=== PATIENT | female | born 1965 | race Caucasian/White ===

== ENCOUNTER 2024-06-10 23:58 | Inpatient (IN) | payer OTHER, SELFPAY ==
[2024-06-10] VITALS (14 sets, daily range): BP systolic 102–130; BP diastolic 53–82
[2024-06-10 21:00] LABS: Glucose - Point of Care 157 mg/dl (70-99)
--- NOTE | 2024-06-10 21:11 | ED.GENMED ---
History of Present Illness
General
Chief Complaint: Unresponsive
Source: ambulance crew
Time Seen by Provider: 06/10/24 21:06
History of Present Illness
History of Present Illness:
59-year-old female brought to the emergency room by paramedics after being found unresponsive reportedly by her landlord. Paramedics report the patient was last seen normal around 2 PM. When paramedics arrived they found the patient unresponsive.
She was noted to be diaphoretic. Patient was breathing spontaneously and maintaining her oxygen saturation. She had an Accu-Chek in the 130s. A bottle of pills was found in the room. These have been identified as bupropion 100mg. The bottle was
not labeled so it is unknown as to how many were prescribed and when. Patient also has ibuprofen tablets and omeprazole tablets. Patient has not been here before so no further history is available.
2240: The cabin cleaning supervisor of the residence where the patient was found has come to the emergency room. She states that she knows the patient from when she was a child. She has not seen her in years but she showed up 6 weeks ago to her home. Patient lives
in [place] and evidently left her home and family unannounced. She was reported as a missing person. Police stopped her in [facility] but had no reason to detain the patient. The patient was last seen awake and alert sometime
yesterday. This afternoon when the home cabin cleaning supervisor came home she found the patient laying on her side seemingly watching a movie on her phone. However when the patient did not seem to move or respond after an extended period of time home underwent to
check on the patient and found her completely unresponsive. Pill bottles were discovered. The bottles with pills and then were brought to the emergency room and are listed in the medication list. There was a empty bottle. Nereida our pharmacy
tech searched the patient's medication history and was able to find a recent prescription for gabapentin 400 mg tablets. It seems that this was the empty bottle. I asked the home monitor if the patient indicated any suicidal ideations to her and
apparently she did not. Pulmonary did not observe any suicide note but she did not really look for 1. She will searched the home and let us know if she finds anything. Homeowner has communicated with the patient's family through Facebook. They
have apparently stated that the patient needs psychiatric care but she is unable to provide any details. There are no contact information for the patient's family in [place].
Phy Exam
Physical Exam
Physical Exam:
General: Not responsive to verbal stimulus. Patient does moan and localize to sternal rub
Vitals: Rectal temp 97, mildly tachycardic, normotensive with normal oxygen saturation
Head: Atraumatic
Eyes: Pupils equal @ 5 mm and reactive
Throat: Airway intact, no exudates
Neck: Trachea midline
Lungs: Clear and equal b/l
Heart: Regular rate, no murmurs
Abd: Soft, Nontender, No pulsatile mass
Neuro: Patient does not follow commands
Skin: Cool to touch, moist, no rash
Extremities: pulses equal b/l, no edema. Area of erythema noted on the right hip as well as the inner left knee
Course
Orders/Labs/Results
Orders:
Orders
06/10/24 21:05
EKG [Electrocardiogram (*1)] Stat
Reason for Study: Fatigue / Weakness
06/10/24 21:06
CT Head W/o Iv Contrast Urgent
Comment:
Reason For Exam: unresponsive
Cardiac Monitoring- Treatment ONCE
EKG- Treatment ONCE
0.9% Sodium Chloride 1000 ml [Nss] 1,000 ml IV BOLUS
06/10/24 21:15
Complete Blood Count/With Diff Urgent
Venous Blood Gas Urgent
%Oxygen/Room Air: 28
06/10/24 21:33
Acetaminophen Urgent
Alcohol Urgent
Basic Metabolic Panel Urgent
Creatine Phosphokinase Urgent
Fentanyl, Urine Urgent
Salicylate Urgent
Urinalysis Reflex To Culture Urgent
Date Specimen was Collected: 06/10/24
Time Specimen was Collected: 21:28
Urine Drug Abuse Screen Urgent
Date Specimen was Collected: 06/10/24
Time Specimen was Collected: 21:28
Urine Microscopic Reflex Cult Urgent
06/10/24 21:52
FentaNYL 1,000 MCG/100 ML [Sublimaze] 1,000 mcg in 100 ml IV NOW
Indication:: Deep Sedation
Begin Infusion:: Now
Goal:: RASS </= -3, BIS 40-60, ventilator synchrony
Maximum dose in mcg/hr:: 300
Continue currently infusing dose and titrate:: Yes
Titration Instructions:: Titrate Q30 min until ventilator synchrony, RASS or BIS goal is met.
Titration Instructions:: If RASS >/= -2 or BIS > 60 or ventilator dyssynchrony:
Titration Instructions:: administer bolus dose and increase infusion by 25 mcg/hr.
Titration Instructions:: Administer analgesia bolus dose(s) & titrate analgesia prior to
Titration Instructions:: adjusting sedation.
Over-sedation Instructions:: if BIS < 40 and pt is synchronous with ventilator, decrease infusion by
Over-sedation Instructions:: 25 mcg/hr every 2 hours until BIS = 40-60.
Over-sedation Instructions:: Do not wean infusion to off if patient is receiving a continuous NMBA or
Over-sedation Instructions:: has received a bolus dose of NMBA within the past 3 hours.
Notify provider:: immediately if pt exhibits signs/symptoms of chest wall rigidity,
Notify provider:: hemodynamic instability, or agitation/pain despite maximum dosing.
Additional Instructions:: Patient MUST be mechanically ventilated.
Fentanyl Citrate/Pf [Sublimaze] 50 mcg IV [id number] PRN
Fentanyl Citrate/Pf [Sublimaze] 80 mcg IV NOW STA
CR Chest Portable - 1 View Urgent
Comment:
Reason For Exam: tube placement
Reason Study Needs to be Portable: Patient Unstable
06/10/24 22:32
Add On- LAB Urgent
Tests Added?: cpk
06/10/24 23:17
Admit/Transfer Patient As Directed
Co-Sign Provider:
Level of Care: Inpatient admission
Assign to:: ICU
Physician / Group: hospitalist
Diagnosis: Unresponsive
Reason for Hospitalization: Unresponsive
Expected length of stay greater than two midnights?: Yes
ELOS- Estimated Length of Stay in days: 2
I certify the patient meets the requirements for IP care: Yes
PRN Pain Medication Management As Directed
May give lesser potent ordered pain med per pt: Yes
preference::
Protocol:: Medication orders for pain may be administered in a
manner that supports deferring to patient preference
when the pt is:
- Requesting an ordered lesser potent pain medication.
Least to most potent pain medications are defined
as: acetaminophen < NSAID < tramadol < opioids
(morphine, oxycodone, hydromorphone).
- Requesting a lesser dose of the same medication IF
ORDERED.
- Requesting a less intrusive route of administration
if both routes are prescribed by the provider (PO <
IV).
06/10/24 23:18
Code Status As Directed
Resuscitation Status: Full Code
06/10/24 23:45
Hep Liver [Hbvir-[id number]] Urgent
06/11/24 00:17
Acetaminophen [Tylenol/Feverall] 650 mg RECTAL Q4HPRN PRN
Bisacodyl [Dulcolax] 10 mg RECTAL [id number] PRN
Dextrose 5%/0.9%Sodchl 1000 ml [D5/0.9% Sodium Chloride] 1,000 ml IV 150 mls/hr
Ipratropium/Albuterol Sulfate [Duoneb] 3 ml INH R Q4HPRN PRN
Ondansetron Injectable [Zofran] 4 mg IV Q6HPRN PRN
Polyethylene Glycol Powder [Miralax] 17 grams PO DAILYPRN PRN
06/11/24 00:17
Consult Notification Routine
Specialty to Notify: Assistant Distribution Manager
Assistant Distribution Manager Consult Routine
Consulting Provider: Evan Squires
Was physician already notified: No
Reason for consult: found obtunded
Activity As Directed
Activity Level: With Assistance
Vital Signs As Directed
Frequency: Per unit guidelines
DX Deep Vein Thrombosis Video Routine
06/11/24 01:18
Venous Blood Gas Routine
%Oxygen/Room Air: 50
06/11/24 06:00
Basic Metabolic Panel IN AM
Complete Blood Count/No Diff IN AM
Creatine Phosphokinase IN AM
ESR [Erythrocyte Sed Rate] IN AM
Folate IN AM
TSH IN AM
Vitamin B12 IN AM
06/11/24 08:00
Pantoprazole [Protonix IV] 40 mg IV DAILY
06/11/24 Dinner
NPO
Allow oral meds: No
Allow clear liquids: No
06/11/24 18:00
Enoxaparin Sodium [Lovenox] 40 mg SC QPM
Abnormal Lab Results
06/10/24 06/10/24 06/10/24
20:59 21:15 21:33
RBC 5.77 H 10^6/uL
(4.20-5.40)
Hgb 17.4 H g/dL
(12.0-16.0)
Hct 52.1 H %
(37.0-47.0)
MPV 11.1 H fL
(7.4-10.4)
Absolute Neuts (auto) 7.8 H 10^3/uL
(1.4-6.5)
Absolute Monos (auto) 0.7 H 10^3/uL
(0.1-0.6)
Neutrophils % 75.9 H %
(42.2-75.2)
Lymphocytes % 16.4 L %
(20.5-51.1)
VBG pCO2 49 H mmHg
(35-48)
VBG pO2 53 H mmHg
(30-50)
VBG HCO3 27.7 H mmol/L
(22-27)
Glucose 188 H mg/dl
(70-99)
AST
Creatine Kinase 1123 H U/L
(30-135)
Urine Ketones 1+ A
(Negative)
Ur Occult Blood Reflex 4+ A
(Negative)
Leukocyte Esterase Rfl Trace A
(Negative)
Urine RBC 21-25 A /HPF
(0-2)
Salicylates < 1.0 L mg/dl
(2.0-20.0)
Acetaminophen < 10 L ug/ml
(10-30)
U Benzodiazepines Scrn Positive H
(Negative)
POC Glucose 157 H mg/dl
(70-99)
06/10/24
23:45
RBC
Hgb
Hct
MPV
Absolute Neuts (auto)
Absolute Monos (auto)
Neutrophils %
Lymphocytes %
VBG pCO2
VBG pO2
VBG HCO3
Glucose
AST 52 H U/L
(14-36)
Creatine Kinase
Urine Ketones
Ur Occult Blood Reflex
Leukocyte Esterase Rfl
Urine RBC
Salicylates
Acetaminophen
U Benzodiazepines Scrn
POC Glucose
06/10/24 21:15
06/10/24 21:33
Vital Signs
Initial and Last Documented VS:
Initial Vital Signs
Temp Pulse Resp Pulse Ox
97.9 F 107 10 96
06/10/24 20:56 06/10/24 20:56 06/10/24 20:56 06/10/24 20:56
Last Documented Vital Signs
Temp Pulse Resp BP Pulse Ox
97.9 F 92 22 103/61 100
06/10/24 20:56 06/11/24 00:04 06/11/24 00:04 06/10/24 23:45 06/11/24 00:04
Procedures
Intubations
Procedure completed by: Myself
Method of Intubation: glidescope
Tube size (cm): 8.0
Placement confirmed by: auscutation, CXR, capnography and direct visualization
Breath sounds after intubation: equal
Intubation complications: no complications
MDM/Problems Addressed
Differential Diagnosis Includes:
Intracranial hemorrhage, ischemic CVA, seizure with postictal state, polypharmacy overdose, bupropion overdose, gabapentin overdose, alcohol intoxication, benzodiazepine overdose
MDM/Problems Addressed:
Patient presents to the emergency room obtunded. She did have a bit of a reaction to a sternal rub when she first arrived but on repeat evaluation she was essentially unresponsive to any painful stimulus. Though she was maintaining her oxygen
saturation she developed sonorous respirations. The decision was made to intubate her for airway protection. Intubation proceeded without any issues. Head CT shows no acute abnormalities. Patient's labs do not indicate a reason for her obtunded
state. The overall presentation seems most consistent with a ingestion of some sort. Patient will require supportive care. Acetaminophen and salicylate levels are 0. Alcohol level is 0.
Spoke with Pt's daughter, Mendy, . Very concerned and would like to be kept up do date. No hx of suicide attempts. No significant psychiatric hx.
*Radiology
Radiology exam reviewed: preliminary read by ED provider (Personal review of the patient's chest x-ray shows ET tube in good position, no pneumothorax, no infiltrate) and radiology read reviewed (Head CT report noted, no acute disease)
*Pulse Oximetry
Patient hypoxic: no
*EKG
Interpreted by ED Provider?: Yes
Interpretation: normal
Heart Rate: 98
Rate: normal
Rhythm: sinus
[place]: normal axis
Interval: normal interval
QRS Pattern: normal QRS
Ischemia: no ischemia
*Production Associate Interpretation
Rate: normal
Interpretation: normal
Rhythm: sinus
*Critical Care Note
Total Time (30-74mins, 75-104mins- exclusive of procedures): 50 min
comment:
Critical care statement: A total of 50 minutes of critical care time was provided for this patient. This includes management of unstable vital signs, evaluation of the patient at bedside, reviewing the patient's pertinent medical records, discussion
with consultants, review of old EKGs and review of pertinent medical records. This time with separate from time utilized to perform the aforementioned documented procedures
ED Attending Note
-
Portions of this chart may have been created with voice recognition software.� Occasional wrong word or��sound alike� substitutions may have occurred due to the inherent limitations of voice recognition software.
Discharge Plan
Departure
Patient Disposition: Admit
Date of Disposition: 06/10/24
Time of Disposition: 22:48
Admit to: ICU
Presentation/result/management discussed w/ accepting MD/DO: Hospitalist
Condition: Serious
Discharge Problem:
Acute alteration in mental status, Respiratory failure
Interventions
Interventions:
*Risk Screen - Suicide Last Done: 06/10/24 21:07
*General Assessment Last Done: 06/10/24 21:06
*Neglect/Abuse Screening Last Done: 06/10/24 21:07
ED- Fall Risk Assessment Last Done: 06/11/24 00:08
*ED COVID-19 Vaccine History Last Done: 06/10/24 21:07
*Nursing Disposition Last Done: 06/11/24 00:08
ED- Neurological Assessment Last Done: 06/10/24 21:08
Discharge Date and Time
Discharge Date/Time: 06/11/24 00:08
[2024-06-10 21:21] LABS: Venous Blood Gas B.E. 1.2 mmol/L (-4 to +4); Venous Blood Gas HCO3 27.7 mmol/L (22-27); Venous Blood Gas O2 Sat % 89.6 %; Venous Blood Gas pCO2 49 mmHg (35-48); Venous Blood Gas pH 7.36 (7.32-7.43); Venous Blood Gas pO2 53 mmHg (30-50)
[2024-06-10 21:23] LABS: % Basophils 0.5 % (0-2); % Eosinophils 0.2 % (0-6); % Immature Granulocytes 0.2 % (0-0.5); % Lymphocytes 16.4 % (20.5-51.1); % Monocytes 6.8 % (1.7-9.3); % Neutrophils 75.9 % (42.2-75.2); Absolute Basophils 0.1 10^3/uL (0-0.2); Absolute Lymphocytes 1.7 10^3/uL (1.2-3.4); Absolute Monocytes 0.7 10^3/uL (0.1-0.6); Absolute Neutrophils 7.8 10^3/uL (1.4-6.5); Hematocrit 52.1 % (37.0-47.0); Hemoglobin 17.4 g/dL (12.0-16.0); Mean Corp Hgb Conc. 33.4 g/dL (33.0-37.0); Mean Corpuscular Hgb 30.2 pg (27.0-31.0); Mean Corpuscular Volume 90.3 fL (81.0-99.0); Mean Platelet Volume 11.1 fL (7.4-10.4); Nucleated Red Blood Cells % 0 %; Platelet Count 232 10^3/uL (130-400); Red Blood Cell Count 5.77 10^6/uL (4.20-5.40); Red Cell Dist. Width 11.9 % (11.5-14.5); White Blood Cell Count 10.3 10^3/uL (4.8-10.8)
[2024-06-10] MEDS: NSS 1000 IV (21:47)
[2024-06-10 21:48] LABS: Urine Albumin Trace (Neg - Trace); Urine Bilirubin Negative (Negative); Urine Character Clear (Clear); Urine Color Yellow; Urine Glucose Negative (Negative); Urine Ketone 1+ (Negative); Urine Leukocyte Trace (Negative); Urine Nitrite Negative (Negative); Urine Occult Blood 4+ (Negative); Urine Specific Gravity 1.015 (<1.030); Urine Urobilinogen Negative (Neg - 1+)
--- NOTE | 2024-06-10 21:51 | PHANOTE ---
Med Rec Note:
Pt unable to be interviewed. Medications found in pt's belonging bag, identified Bupropion 100mg, no label on pill bottle and no mention in Dr Alaniz, unable to find out frequency of prescription. Ibuprofen 200mg, Omeprazole/Sodium Bicarb 20-1100mg,
and Vape Pen in belongings as well.
Gabapentin 400mg taper prescription found in Dr Alaniz.
Home med list left unconfirmed.
[2024-06-10 21:58] LABS: Amphetamines Negative (Negative); Barbiturates Negative (Negative); Benzodiazepines Positive (Negative); Buprenorphine Negative (Negative); Cocaine Negative (Negative); Marijuana Negative (Negative); Methadone Negative (Negative); Methamphetamines Negative (Negative); Opiates Negative (Negative); Phencyclidine Negative (Negative); Tricyclic Antidepressants Negative (Negative)
[2024-06-10 22:00] LABS: Urine Red Blood Cell 21-25 /HPF (0-2); Urine White Cell 0-2 /HPF (0-5)
[2024-06-10 22:11] LABS: Acetaminophen < 10 ug/ml (10-30); Alcohol None Detected; Blood Urea Nitrogen 11 mg/dl (7-17); Calcium 9.9 mg/dl (8.4-10.2); Carbon Dioxide 24 mmol/L (22-30); Chloride 104 mmol/L (98-107); Glucose 188 mg/dl (70-99); Salicylate < 1.0 mg/dl (2.0-20.0); Sodium 143 mmol/L (135-145); eGFR > 60.00
[2024-06-10] MEDS: SUBLIMAZE 80 MCG IV (22:16)
[2024-06-10 22:17] LABS: Fentanyl, Urine Negative (Negative)
[2024-06-10] MEDS: SUBLIMAZE 100 IV (22:22)
[2024-06-10 22:44] LABS: Creatine Phosphokinase 1123 U/L (30-135)
--- NOTE | 2024-06-10 23:07 | HPS.HSE ---
Family Physician
-
Family Physician:
Chief Complaint
-
Unresponsive
History of Present Illness
This is a 59-year-old female who was found unresponsive at an acquaintance's house. History cannot be obtained from patient no family available to provide corroborative information. My history was relayed in part by ED physician and hospital staff.
According to the history obtained from the acquaintance, the patient was last seen normal denied previous evening. Maintenance went to work today and when she came back at around 6 PM found the patient laying on the chair not moving. Initially
thought she was sleeping. However the patient was motionless but appeared to be breathing. She was not arousable and EMS was called. Found at the patient's bedside was a bag which contained Wellbutrin, ibuprofen and omeprazole. She has a
prescription for gabapentin 400 mg tablets 3 times daily with instructions to increase in his twice fashion. It is unclear whether she had any actual ingestions.
The acquaintance reported that the patient's daughter lives in another state and the patient was originally from another state. She arrived in [place] about 6 weeks ago. She was reported as a missing person from the outside state. "Emma"Robert reports that the patient had psychiatric issues. No prior history of suicidal ideation. No prior history of suicidal attempt. Over the 6 weeks that she has been known by the acquaintance she has not expressed any suicidal ideation. She
was initially picked up by police as a missing person but was found to be not a danger to herself or anyone else and was released to the acquaintance where she has been staying since. No other history is available.
On arrival in the emergency department the patient was obtunded and unresponsive. She was intubated immediately. Initial gas was actually unremarkable with mild respiratory acidosis. She was afebrile blood pressure was stable at 120/60 and she
was satting 95% on room air. CBC was unremarkable. Electrolytes and BUN/creatinine also normal. UA was unremarkable. CT of the head shows no nothing acute, carry 1 malformation noted. Chest x-ray status post intubation showed appropriate
placement of ET tube with some atelectasis. The drug screen was negative for serum toxicology. Urine was positive for benzodiazepine and THC.
Medical History
Past Medical History
Past Medical History: Reports Other (Unable to obtain due to obtundation)
Past Surgical History: Reports Other
Additional Past Surgical History:
Unable to obtain due to obtundation
Social History
Unable to obtain full social history at this time due to: Patient Non-verbal
Family History
Family History: Unable to Obtain (Obtunded and intubated)
Allergies / Home Medications
Allergies reflects when Allergies were last updated in [facility].
Home Medications with original date entered in [facility]
Allergy/Medication List:
Allergies
Allergy/AdvReac Type Severity Reaction Status Date / Time
No Allergy Information Allergy Unverified 06/10/24 21:31
Available
Home Medications
bupropion HCl 100 mg tablet 100 mg PO 06/10/24
gabapentin 400 mg capsule 400 mg PO USEASDIRECTD 06/10/24
ibuprofen 200 mg tablet 200 - 400 mg PO Q4HPRN PRN mild pain 06/10/24
omeprazole-sodium bicarbonate 1 tab PO DAILY 06/10/24
Review of Systems
-
Unable to obtain full review of systems at this time due to: Patient Intubation
Physical Exam
Vital Signs
Vital Signs
Temp Pulse Resp BP Pulse Ox
97.9 F 91 14 113/59 100
06/10/24 20:56 06/10/24 22:45 06/10/24 22:45 06/10/24 22:45 06/10/24 22:45
Physical Exam
General: Intubated
HEENT: NormoCephalic, Anicteric, Moist mucous membranes, Atraumatic and No Ptosis
Respiratory: Clear
Cardiac: S1/S2 and Regular Rhythm
Breast: Deferred by me
GI: Soft, Non Tender, Non Distended and Normal Bowel Sounds
Rectal: Deferred by Provider
Genito-urinary: Clear Urine
Musculoskeletal: No Clubbing, No Cyanosis and No Edema
Skin: Warm
Neuro: Sedated (intubated)
Hematologic/Lymphatic: No Lymphadenopathy
Laboratory Results
-
06/10/24 21:15
06/10/24 21:33
Laboratory Results
Total Bilirubin Cancelled 06/10/24 21:33
AST Cancelled 06/10/24 21:33
ALT Cancelled 06/10/24 21:33
Alkaline Phosphatase Cancelled 06/10/24 21:33
Data Reviewed
-
Diagnostic Radiology: Image Personally Visualized and interpreted and Report Reviewed by me
CT Scan: Report Reviewed by me
Medical Tests (Nuc Med, Echo, EKG etc): Image Personally Visualized and interpreted
Lab Data: Labs Reviewed by me
Old Records: Reviewed
Impression/Plan
-
IMPRESSION:
59 F found down by acquantance with no known history except for a history of psychiatric problems and seemingly leaving her home out of state and found in [place] 6 weeks ago. Possible ingestion but negative drug screen and urine screen. No seizure hx.
CT head is unremarkable. CBC, BUN/Cr and electrolytes unremarkable. CK elevated. Intubated for airway protection and obtundation. No infiltrates.
PLAN:
1. Obtundation - Overdose suspected vs seizure. + urine benzos and thc. No h/o si.
- admit to icu
- intubated, 14 450 50 5, titrate to minimum setting as tolerated
- IV D5 NS for now at 150 ml/hr, trend cpk, normal renal function at this time
- gi ppx with PPI IV
- holding welbutrin and gabapentin
- wean sedation as tolerated
- tsh, b12, folate, esr in am
- if not awake in am, EEG and neuro consult in am
- psych consult when able
- f/u with daughter in am
- 1:1 when awake
-snout puller consulted
DVT PPX - lovenox sq
Code status - full code
[2024-06-11] VITALS (29 sets, daily range): BP systolic 107–155; BP diastolic 58–104; BMI 26.9
[2024-06-11 00:15] LABS: ALT (SGPT) 27 U/L (0-35); AST (SGOT) 52 U/L (14-36); Albumin 4.2 g/dl (3.5-5.0); Alkaline Phosphatase 90 U/L (38-126); Direct Bilirubin 0.2 mg/dl (0.0-0.4); Total Bilirubin 1.1 mg/dl (0.2-1.3); Total Protein 7.3 g/dl (6.3-8.2)
[2024-06-11 01:10] LABS: Venous Blood Gas B.E. -0.8 mmol/L (-4 to +4); Venous Blood Gas HCO3 26.7 mmol/L (22-27); Venous Blood Gas O2 Sat % 90.2 %; Venous Blood Gas pCO2 53 mmHg (35-48); Venous Blood Gas pH 7.31 (7.32-7.43); Venous Blood Gas pO2 57 mmHg (30-50)
[2024-06-11 01:12] LABS: Hematocrit 52.1 % (37.0-47.0); Hemoglobin 17.1 g/dL (12.0-16.0); Mean Corp Hgb Conc. 32.8 g/dL (33.0-37.0); Mean Corpuscular Hgb 30.1 pg (27.0-31.0); Mean Corpuscular Volume 91.7 fL (81.0-99.0); Mean Platelet Volume 11.3 fL (7.4-10.4); Platelet Count 212 10^3/uL (130-400); Red Blood Cell Count 5.68 10^6/uL (4.20-5.40); Red Cell Dist. Width 11.9 % (11.5-14.5); White Blood Cell Count 11.1 10^3/uL (4.8-10.8)
[2024-06-11 01:24] LABS: INR 1.03
[2024-06-11] MEDS: NSS 1000 IV ×2 (01:28→12:40)
[2024-06-11 01:36] LABS: Blood Urea Nitrogen 11 mg/dl (7-17); Carbon Dioxide 25 mmol/L (22-30); Chloride 107 mmol/L (98-107); Glucose 201 mg/dl (70-99); Potassium 4.6 mmol/L (3.5-5.1); Sodium 148 mmol/L (135-145); eGFR > 60.00
[2024-06-11 01:37] LABS: Magnesium 1.8 mg/dl (1.6-2.3); Phosphorus 3.8 mg/dl (2.5-4.5)
[2024-06-11 01:40] LABS: Erythrocyte Sed Rate 21 mm/hour (0-20)
[2024-06-11 01:53] LABS: Creatine Phosphokinase 3083 U/L (30-135)
--- NOTE | 2024-06-11 02:31 | PTCARENOTE ---
Received pt via transfer from ER. Pt arrived unresponsive with slight movement during painful stimuli. Pupils +2 and sluggish with weak cough and gag reflexes. Sinus tach, pulses weak on palpation, no edema. #8 ETT, 21@ lip. Ventilator settings AC:
18/450/5/35%, lung sounds diminished bilaterally throughout. OG tube 50@lip placed draining bright green gastric contents. Hypoactive bowel sounds in all 4Q. Paulson catheter placed, draining cloudy yellow urine. Skin cool to touch. Restraints CDI.
Protective foam placed on right hip where blister is present. Bilateral raised red rashes present on both inner knee areas. Protective foams place on both heels as well. Fentanyl gtt DC'd. NS gtt started see flowsheet. Labs drawn and hygiene
performed.
[2024-06-11 02:40] LABS: Vitamin B12 780 pg/ml (239-931)
--- NOTE | 2024-06-11 05:01 | PTCARENOTE ---
All systems reassessed, hygiene performed. No other change in status.
[2024-06-11 06:31] LABS: Glucose - Point of Care 168 mg/dl (70-99)
[2024-06-11] MEDS: MAGNESIUM SULFATE 100 IV (06:37)
[2024-06-11] MEDS: LR 1000 IV (06:37)
[2024-06-11] MEDS: NOVOLOG FLEXPEN-LOW RESISTANCE 1 UNITS SC (06:48)
[2024-06-11 07:03] LABS: Troponin I 0.024 ng/ml
[2024-06-11] MEDS: PROTONIX IV 40 MG IV (07:38)
--- NOTE | 2024-06-11 08:00 | PTCARENOTE ---
Received pt from previous RN. Pt opens eye to verbal stimuli, nods her head, drowsy. Sinus tach w/ prolonged QT. #8 ETT 21 @ lip left side. O2 sat 100% vent AC setting 18/450/6/35%, lungs diminished. OG 50 @ lip to low intermittent suction. Paulson in
place, hygiene provided. LE cold to touch. LR infusing @ 100 ml/hr. Q2T provided. Safe environment maintained.
--- NOTE | 2024-06-11 08:05 | PTCARENOTE ---
Received pt from previous RN. Pt opens eye to verbal stimuli, nods her head appropriately, drowsy. Sinus tach w/ prolonged QT. #8 ETT 21 @ lip left side. O2 sat 100% vent AC setting 18/450/6/35%, lungs diminished. OG 50 @ lip to low intermittent
suction. Paulson in place, hygiene provided. LE cold to touch. LR infusing @ 100 ml/hr. Q2T provided. Safe environment maintained.
--- NOTE | 2024-06-11 08:11 | CON.INTV ---
Consultation
Consultation Request
Date/Time Consultation Requested: 06/11/202416
Date/Time Consultation Performed: 06/11/2024808
Requesting Provider: Dr. Hernandez
Performing Provider: Dr. Squires
Reason for Consultation: Intubated on ventilator
Medical History
-
Chief Complaint: Found unresponsive
History of Present Illness:
59-year-old female with a past medical history of DM type II who presents via [facility] from home with unresponsiveness. HPI obtained from medical records and the patient's roommate, Ghada Mejias, as patient is intubated and most of her
history is unobtainable. Patient previously used to live here in [place] from age 3 to age 17. She did live in [place] for some time but then moved to [place]. The patient has children as well. She went missing on 05/02/2024 and never
told anyone where she went. She was eventually found by the police here in [place] but continue to stay at Ghada's home. On the morning PAPER GRADER, Ghada said that she saw the patient on the floor and was minimally responsive and she thought that
she was just ignoring her. Later when she came home she found her unresponsive and 911 was called. When EMS arrived there was a THC vape pen nearby and multiple unmarked pills found with the patient, suspected to be Wellbutrin, ibuprofen and
omeprazole. BS was 134 and she was not responding to physical movement. The patient has no prior history of suicidal ideation however apparently her mother had committed suicide. In the ER she was obtunded and unresponsive and was intubated. In
the ER she was afebrile to 97.9 �F, pulse rate 107, BP 113/81 and saturating 96% on room air. Labs showed Hb 17.4, WBC WNL at 10.3, glucose 188, AST 52, creatinine kinase 1123, urinalysis with +1 ketones and trace leukocyte esterase, and urine drug
screen was positive for benzos. CT head showed no acute intracranial abnormality, and CXR showed bibasilar subsegmental atelectasis. She was brought to the ICU for further care and lab clerk services consulted for additional
management/recommendations.
Pt seen and evaluated this AM. Remains intubated on AC/VC 18/450/5/35% with PIP [id number], VTe 440mL and breathing at 19 b/min. Failed SBT this AM on 11/30 due to apnea. She opens her eyes to my voice but not following commands. She appears in no
acute distress. She had an OGT that was on low intermittent wall suction with minimal output. QTc remains prolonged (682ms this AM).
PMHx: DM type II (remainder of history is unknown at this point)
PSHx: Unknown
Past Medical History
Past Medical History: Other (Above as per HPI)
Past Surgical History: Other (Above as per HPI)
Social History
Tobacco: Other (Unable to obtain)
Alcohol: Other (Unable to obtain)
Drug: Other (Unable to obtain)
Living: With Roomate
Family History
Family History: Unable to Obtain
Allergies / Home Medications
Allergies
Allergy/AdvReac Type Severity Reaction Status Date / Time
No Allergy Information Allergy Unverified 06/10/24 21:31
Available
Home Medications
�Medication �Instructions �Recorded �Confirmed �Last Taken �Type
bupropion HCl 100 mg tablet 100 mg PO 06/10/24 Unknown History
gabapentin 400 mg capsule 400 mg PO USEASDIRECTD 06/10/24 Unknown History
ibuprofen 200 mg tablet 200 - 400 mg PO Q4HPRN PRN mild 06/10/24 Unknown History
pain
omeprazole-sodium bicarbonate 1 tab PO DAILY 06/10/24 Unknown History
Review of Systems
-
Unable to Obtain full review of systems at this time due to: Acuity and Patient Intubation
Vitals / Labs / Diagnostic Testing
Vital Signs
Temp Pulse Resp BP Pulse Ox
99.3 F 118 18 120/71 100
06/11/24 08:06 06/11/24 09:15 06/11/24 09:15 06/11/24 09:00 06/11/24 09:15
Lab Data
06/11/24 00:59
06/11/24 07:42
Laboratory Results
06/11/24
00:59
PT 14.0
INR 1.03
APTT 30.0
Diagnostic Testing:
Physical Exam
-
HEENT: Normocephalic, Anicteric and Other (ETT in place)
Cardiovascular: S1/S2, Peripheral Edema (negative) and Other (Tachycardic)
Respiratory: Wheeze (negative), Rales (negative), Rhonchi (negative), Non-Labored Respirations and Other (Mechanical breath sounds heard bilaterally)
GI: Soft, Non Distended, Non Tender and Normal Bowel Sounds
Neurology: Tremors (negative)
Skin: Warm and Dry
General: Respiratory Distress (negative), Comfortable, Fever (negative) and Chills (negative)
Assessment
-
Assessment: 59-year-old female with a past medical history of DM type II who presents via [facility] from home with unresponsiveness. HPI obtained from medical records and the patient's roommate, Ghada Mejias, as patient is intubated and
most of her history is unobtainable. Patient previously used to live here in [place] from age 3 to age 17. She did live in [place] for some time but then moved to [place]. The patient has children as well. She went missing on 05/02/2024
and never told anyone where she went. She was eventually found by the police here in [place] but continue to stay at Ghada's home. On the morning PAPER GRADER, Ghada said that she saw the patient on the floor and was minimally responsive and she
thought that she was just ignoring her. Later when she came home she found her unresponsive and 911 was called. When EMS arrived there was a THC vape pen nearby and multiple unmarked pills found with the patient, suspected to be Wellbutrin,
ibuprofen and omeprazole. BS was 134 and she was not responding to physical movement. The patient has no prior history of suicidal ideation however apparently her mother had committed suicide. In the ER she was obtunded and unresponsive and was
intubated. In the ER she was afebrile to 97.9 �F, pulse rate 107, BP 113/81 and saturating 96% on room air. Labs showed Hb 17.4, WBC WNL at 10.3, glucose 188, AST 52, creatinine kinase 1123, urinalysis with +1 ketones and trace leukocyte esterase,
and urine drug screen was positive for benzos. CT head showed no acute intracranial abnormality, and CXR showed bibasilar subsegmental atelectasis. She was brought to the ICU for further care and lab clerk services consulted for additional
management/recommendations.
Chronic conditions PAPER GRADER: DM type II, Chiari I malformation (remainder of history is unknown at this point)
Impression:
#Ventilator dependent respiratory failure
#Unresponsive with suspected drug overdose (wellbutrin, NSAID and gabapentin)
#Polycythemia
#Acute respiratory failure with respiratory acidosis
#DM type II c/b hyperglycemia (A1c: 11 from 06/11/2024) and increased anion gap with metabolic acidosis due to early DKA
#Transaminitis with rhabdomyolysis
#Prolonged QTc (682ms this AM on 06/11/2024)
#Subclinical hypothyroidism with severely elevated TSH (21.5 and 06/11/2024)
Plan:
- Continue with mechanical ventilation
- Daily SAT/SBT if clinically appropriate
- Adjust vent as needed based on daily blood gas
- Titrate FiO2 + PEEP to maintain SpO2 >90 this 94%
- Maintain plateau pressure <30
- Trend CPK and continue IVF - currently on LR @ 100cc/hr
- Given her increased anion gap with metabolic acidosis and hyperglycemia with A1c of 11, she is developing DKA
- Change IVF to 1/2NS-KCl and start insulin gtt with q4hr BMP, Mg and PO4
- Avoid hypoglycemia and check q1hr fingersticks
- Once BG <250mg/dL then change IVF to dextrose containing fluids
- Avoid hypokalemia
- Once AG closed x2 with BG <200 and serum HCO3>18 then will bridge off insulin gtt
- Trend LFTs and CPK
- trend CPK until <500
- Consult neurology and consider EEG
- Given that her TSH is >20 despite a normal fT4 at 0.8, will start supplemental levothyroxine at 100mcg per day
- Re-check her TSH and free T4 in 48-72hrs to re-assess for improvement and adjust her levothyroxine if needed with eventual transition to PO
- Trend QTc and if QRS started to widen >120ms then start bicarb
- Echo performed today showing hyperdynamic systolic LV function with EF >70% with normal RV size and function with no significant valvular disease; no prior study available for comparison
- Maintain MAP>65
- Replete electrolytes with K>4, Mg>2
- Trend H/H and transfuse if needed to keep Hb>7g/dL; keep plt>20k, unless there is concern for bleeding then keep plt>50k
- prn nebulized bronchodilators - not currently bronchospastic
- PPI (home med)
- DVT ppx: LMWH
Critical care statement: A total of 41 minutes of critical care time was provided for this patient today. This includes management of unstable vital signs, evaluation of the patient at bedside, reviewing the patient's pertinent medical records
including radiographs, microbiology, laboratory evaluations, and discussion with primary team, consultants, pharmacy, nutrition, physical therapy, case management, charge nurse, critical care nursing, and respiratory therapy.
Data:
CT head without contrast 06/10/2024:
1. No CT evidence for acute intracranial hemorrhage or transcortical infarct.
2. Mild bilateral frontal lobe volume loss.
3. Chiari I malformation.
CXR 06/10/2024:
1. Endotracheal tube in appropriate position.
2. Mildly decreased bilateral lung volumes with mild subsegmental atelectasis in the basilar lower lobes.
TTE 06/11/2024:
TDS.
Small appearing left ventricle with hyperdynamic systolic function.
No obvious wall motion abnormalities.
LV ejection fraction greater than 70% per visual estimation.
Normal RV size and function.
No significant valvular disease.
Insufficient TR for estimation of PASP.
No prior study available for comparison.
--- NOTE | 2024-06-11 08:41 | CON.CAR ---
Consultation
Consultation Request
Date/Time Consultation Requested: 06/11/2024 at 6 AM
Date/Time Consultation Performed: 06/11/2024 7 AM
Requesting Provider: Hospitalist
Performing Provider: Dr. Poe
Reason for Consultation: Abnormal ECG
Medical History
-
History of Present Illness:
59-year-old woman who is vented and nonresponsive in ICU. Unable to obtain history. Information obtained in discussion with staff as well as review of chart. Patient found unresponsive at her home. Patient found in the chair unresponsive but was
breathing. Apparently a bag was found which contained Wellbutrin ibuprofen and also reportedly had a prescription for gabapentin. Apparently [place] is from out of state but has been in [place] for the last 6 weeks. Other notes suggest that
patient had been reported as a missing person from an outside state and also has some psychiatric issues. Full details not clear. Patient was unresponsive in the ER and was intubated blood pressure has been stable. Patient now admitted to the
ICU. Drug screen reported to be negative urine screen was positive for benzo. Consult for abnormal ECG.
Past medical history. Limited information as noted above
ECG #1 06/10/2024 sinus rhythm heart rate 98 bpm QTc 469
ECG #2 sinus tachycardia heart rate [address] depression in the anterior leads there appears to be QT prolongation estimated QTc 543. Difficult to fully measure QT as emerges into the P wave
Past Medical History
Past Medical History: Other (As above)
Social History
Tobacco: Other
Living: Other (Limited information regarding social history as noted above in HPI)
Family History
Family History: Other ( patient unable to provide)
Allergies / Home Medications
Allergy/AdvReac Type Severity Reaction Status Date / Time
No Allergy Information Allergy Unverified 06/10/24 21:31
Available
�Medication �Instructions �Recorded �Confirmed �Type
bupropion HCl 100 mg tablet 100 mg PO 06/10/24 History
gabapentin 400 mg capsule 400 mg PO USEASDIRECTD 06/10/24 History
ibuprofen 200 mg tablet 200 - 400 mg PO Q4HPRN PRN mild 06/10/24 History
pain
omeprazole-sodium bicarbonate 1 tab PO DAILY 06/10/24 History
Review of Systems
-
Unable to obtain full review of systems at this time due to: Patient Intubation and Other (Unable to provide due to mental status)
Physical Exam
Vital Signs
Temp Pulse Resp BP Pulse Ox
99.3 F 125 20 147/72 100
06/11/24 08:06 06/11/24 08:00 06/11/24 08:00 06/11/24 08:00 06/11/24 08:20
Lab Results
06/11/24 00:59
Troponin I 0.024 ng/ml 06/11/24 06:33
Physical Exam
General: Well Developed, Well Nourished and Other ( )
HEENT: Normocephalic, Anicteric and Other (Pupils are equal external ear and nose exam unremarkable ET tube in place)
Respiratory: Other (Vented with no wheezes or rhonchi)
Cardiac: Regular Rhythm (Tachycardic)
GI: Soft, Non Distended, Normal Bowel Sounds and Other (No mass detected)
Musculoskeletal: No Clubbing, No Cyanosis and No Edema
Skin: Warm
Neuro: Other (Opens eyes to voice but not following commands.)
Hematologic/Lymphatic: No Lymphadenopathy
Psych: Other (Unable to assess due to current mental status)
Impression / Plan
-
59-year-old woman who is found to be unresponsive and due to mental status has been intubated. Patient has been hemodynamically stable. Initial ECG showed sinus rhythm and otherwise was unremarkable however second ECG shows sinus tachycardia with
evidence of prolonged QT.
.
QT prolongation. May be multifactorial. Challenging since it is not clear exactly what medications or other substances patient has ingested.
-Continue supportive treatment
-Can give some additional magnesium
-Keep potassium greater than 4.0
-Avoid drugs that prolong QT.
.
Abnormal ECG. QT as noted above there is also some ST changes. ST changes are more notable at her higher heart rates
-Continue supportive treatment and optimize respiratory status
-Echocardiogram
-Troponins
-If patient develops additional QRS widening bicarbonate may be considered.
Tox. Urine positive for benzos unclear what else has been ingested list of potential meds available included gabapentin Wellbutrin and ibuprofen.
.
VDRF. Mostly intubated due to mental status.
-Management as directed by pulmonary/critical care.
.
Suspected drug overdose. Details of what ingested are unclear
CPK/rhabdo. Total CPK 3083. Trending up from 1123 troponin 0.024
-Continued assessment and management as directed by primary team
-Continue to monitor CPK
.
TSH 21.50. Check T4
.
DM.
-Hemoglobin A1c 11
-Glucose 200s. Management directed by primary team
.
Tox. Urine positive for benzos
Data Reviewed
-
EKG: Tracing Personally Visualized and interpreted and Report Reviewed by me
Medical Tests (Nuc Med, Echo etc): Report Reviewed by me
[2024-06-11 08:45] LABS: Blood Urea Nitrogen 12 mg/dl (7-17); Calcium 9.3 mg/dl (8.4-10.2); Carbon Dioxide 21 mmol/L (22-30); Chloride 106 mmol/L (98-107); Glucose 250 mg/dl (70-99); Magnesium 2.2 mg/dl (1.6-2.3); Potassium 3.9 mmol/L (3.5-5.1); Sodium 145 mmol/L (135-145); eGFR > 60.00
[2024-06-11 10:50] LABS: B-Hydroxybutyrate 2.52 mmol/L (0.02-0.27)
[2024-06-11 11:58] LABS: Venous Blood Gas B.E. 3.3 mmol/L (-4 to +4); Venous Blood Gas HCO3 25.1 mmol/L (22-27); Venous Blood Gas pCO2 30 mmHg (35-48); Venous Blood Gas pH 7.53 (7.32-7.43); Venous Blood Gas pO2 162 mmHg (30-50)
[2024-06-11 12:02] LABS: Glucose - Point of Care 205 mg/dl (70-99)
[2024-06-11 12:05] LABS: ALT (SGPT) 24 U/L (0-35); AST (SGOT) 37 U/L (14-36); Albumin 3.9 g/dl (3.5-5.0); Alkaline Phosphatase 74 U/L (38-126); Blood Urea Nitrogen 12 mg/dl (7-17); Calcium 9.2 mg/dl (8.4-10.2); Carbon Dioxide 21 mmol/L (22-30); Chloride 108 mmol/L (98-107); Glucose 239 mg/dl (70-99); Sodium 145 mmol/L (135-145); Total Bilirubin 1.2 mg/dl (0.2-1.3); Total Protein 6.8 g/dl (6.3-8.2); eGFR > 60.00
[2024-06-11 12:15] LABS: Troponin I < 0.012 ng/ml
--- NOTE | 2024-06-11 12:33 | PTCARENOTE ---
Bedside rounds completed. Dr. Squires said 3rd trop can be cancelled if 2nd trop is negative. Echo provided @ bedside. 1L bolus ordered. No other changes in assessment.
[2024-06-11] MEDS: NOVOLOG FLEXPEN-MODERATE RESISTANCE 3 UNITS SC (12:41)
--- NOTE | 2024-06-11 12:49 | PTCARENOTE ---
Dr. Squires @ bedside states to clamp the OG tube. Will continue to monitor.
[2024-06-11] MEDS: LEVOTHROID 100 MCG IV (14:23)
[2024-06-11 14:27] LABS: Glucose - Point of Care 154 mg/dl (70-99)
[2024-06-11] MEDS: D5/0.45%NSS with KCL 20 MEQ 1000 IV ×2 (14:30→21:17)
[2024-06-11] MEDS: NOVOLIN R INSULIN INFUSION 100 IV (14:30)
--- NOTE | 2024-06-11 15:26 | W.PN.HOSP.TC ---
Today's Communication/Plan
-
Vent support.
Monitor for mental status recovery
Neurologic evaluation.
SBT when mental status allows.
IV fluids
IV insulin with serial Accu-Cheks.
Monitor QTc
Total Critical Care Time_45____ minutes. I was immediately available to the patient and staff. I personally examined, reviewed labs, diagnostic images/reports, interpretations, treatment plans, discussed patient care with other providers and
family or caregivers (if patient is unable to make decisions), entered orders as appropriate and documented the medical record.
Assessment / Plan
Assessment / Plan
Impression:
Altered mental status, suspected toxic metabolic encephalopathy versus seizure with postictal, versus drug overdose
VDRF
-intubated in ED on 06/10
Prolonged QT.
Rhabdomyolysis nontraumatic mild
Untreated diabetes with hemoglobin A1c 11.
Untreated hypothyroidism.
Plan:
Altered mental status secondary to toxic metabolic encephalopathy.
Seizure, versus suspected drug overdose
Intubated in ED.
Urine drug screen positive for benzodiazepine.
CT head with no acute abnormalities
Continue vent support.
Wean off sedation to as needed.
SBT when mental status allows.
Neurologic evaluation
Seizure precautions
Prolonged QT.
Negative troponin.
Echo 06/11 with normal LVEF at 70%. Normal RV size and function.
Continue monitoring electrolytes.
Follow ECG
Cardiology input noted.
Diabetes likely untreated with hemoglobin A1c 11.
Hyperglycemic
Elevated serum acetone
Possibly mild DKA in combination with contraction alkalosis.
Initiated on insulin drip while intubated.
Continue serial blood glucose monitoring.
Continue IV fluids
Untreated hypothyroidism.
TSH 21.5. Free T40.8
Initiated on IV levothyroxine
Follow-up with TFTs
Anticipated Discharge: > 48 hours
Subjective/Interval History
-
Date of Service: June 11, 2024
Objective Data
-
Labs:
Laboratory Results
06/11/24 06/11/24 06/11/24
00:59 07:42 11:41
WBC 11.1 H
Hgb 17.1 H
Hct 52.1 H
Plt Count 212
Sodium 145 145
Potassium 3.9 4.0
Chloride 106 108 H
Carbon Dioxide 21 L 21 L
BUN 12 12
Creatinine 0.8 0.8
Glucose 250 H 239 H
Calcium 9.3 9.2
Total Bilirubin 1.2
AST 37 H
ALT 24
Alkaline Phosphatase 74
06/11/24 06/11/24 06/11/24
16:00 18:30 20:00
WBC
Hgb
Hct
Plt Count
Sodium Cancelled Pending Cancelled
Potassium Cancelled Pending Cancelled
Chloride Cancelled Pending Cancelled
Carbon Dioxide Cancelled Pending Cancelled
BUN Cancelled Pending Cancelled
Creatinine Cancelled Pending Cancelled
Glucose Cancelled Pending Cancelled
Calcium Cancelled Pending Cancelled
Total Bilirubin
AST
ALT
Alkaline Phosphatase
06/11/24
22:30
WBC
Hgb
Hct
Plt Count
Sodium Pending
Potassium Pending
Chloride Pending
Carbon Dioxide Pending
BUN Pending
Creatinine Pending
Glucose Pending
Calcium Pending
Total Bilirubin
AST
ALT
Alkaline Phosphatase
Vital Signs:
Vital Signs
Temp Pulse Resp BP Pulse Ox
100.0 F 114 20 147/73 99
06/11/24 11:37 06/11/24 15:15 06/11/24 15:15 06/11/24 15:00 06/11/24 15:15
I&O
06/10/24 06/11/24 06/12/24
06:59 06:59 06:59
Intake Total 750 / 850 1782 / 1782
Output Total 1600 / 1650 549 / 549
Balance -850 / -800 1233 / 1233
Physical Exam
-
General: Well Developed and No Apparent Distress
HEENT: Normocephalic, Atraumatic, Moist Mucous Membranes and Other (ET tube with clear secretions)
Respiratory: Clear to Auscultation
Cardiac: Regular Rhythm and S1/S2; Negative Murmur, Rub or Gallop
GI: Soft, Nontender, Nondistended and Normal Bowel Sounds; Negative Organomegaly
Rectal: Deferred by Provider
Musculoskeletal: No Clubbing, No Cyanosis and No Edema
Skin: Negative Rash
Neuro: Sedated and Nonfocal/Grossly Intact
[2024-06-11 15:44] LABS: Glucose - Point of Care 198 mg/dl (70-99)
--- NOTE | 2024-06-11 15:55 | CON.NEURO4 ---
Addendum entered and electronically signed by Valente Leyva MD 06/11/24 16:34:
Studies reviewed.
I have personally examined the patient. I reviewed and agree with the WAREHOUSE DELIVERY MANAGER's Note.
My addenda:
Awake, intermittently interactive. No acute distress.
Speech unable to assess due to intubation.
Follows no requests. No tremor.
Extra-ocular movements grossly intact.
Facial movements full and symmetric. Hearing intact to normal conversational volume.
Does not withdraw UE movements with painful stimulation bilaterally. Does withdraw bilateral lower extremities with pain stimulation
Neck: full ROM.
Chest: no dyspnea
Heart: no JVD
Ext: (-) Clubbing, (-) Cyanosis, (-) Edema
IMPRESSIONS/RECOMMENDATIONS:
Abrupt onset of reduced responsiveness
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 This is not necessarily the
cause for her initial unresponsiveness which may have been due to toxic metabolic encephalopathy
Psychiatric consultation
Supportive care
Will continue to follow as needed.
Original Note:
Consultation - Neurology 4
-
CONSULTING PHYSICIAN: Valente Leyva MD
REFERRING PHYSICIAN: [facility]/Dr. Squires
DICTATED BY: YANNI John
DATE/TIME OF REQUEST: 06/11/24
DATE/TIME OF CONSULTATION: 06/11/24
Reason for Consultation: Change in mental status
History of Present Illness:
This is a 59-year-old unknown-handed female who has presented to the hospital on 06/10/24 with report of being found unresponsive. Patient was found by her landlord unresponsive and diaphoretic but breathing spontaneously and maintaining her oxygen
saturation. There was an empty bottle of Wellbutrin in the room. There is an extensive psychosocial back story and nursing notes that the patient is known to have a possible underlying psychiatric disorder. Patient opens eyes to voice but is still
not following commands, prompting Neurology evaluation.
Past Medical History: Unknown.
Surgical History: Unknown.
Family History: Mother- psychiatric disorder, committed suicide.
Social History: Unknown.
Allergies: Unknown.
Home Medications: See below.
Review of Symptoms:
Per the HPI. I am unable to obtain a complete review of systems�because of patient's inability to provide history.
Physical Exam:
The patient is afebrile, abdomen is nondistended, breathing is unlabored, skin is warm and dry, no edema.
Neurologic Examination:
The patient is intubated, no sedation. She opens her eyes to voice. Does not follow any commands. On cranial nerve assessment, pupils are 3 mm bilateral, round and reactive to light and accommodation. Visual lemus are full. EOMs track in all
directions. There is no apparent facial asymmetry. Hearing is intact bilaterally to normal conversation volume. Tongue palate and uvula are midline. To pain, withdraws lower extremities briskly, 0/5 upper extremities. No involuntary movement noted.
Deep tendon reflexes are 2+ bilateral upper and lower extremities and Babinski is absent bilaterally. SANDEE sensation, DBS, and coordination.
Lab Results: See below.
Neuro Imaging:
1. CT Head 06/10/24: No CT evidence for acute intracranial hemorrhage or transcortical infarct. Mild bilateral frontal lobe volume loss. Chiari I malformation.
Differentials for the patient's presentation include:
1. Very low concern for seizure or intracranial abnormality producing change in mental status.
2. Medication overdose combined with significant metabolic disturbances; uncontrolled NIDDM and possibly severe depression likely contributing to patient's lack of attention/abnormal mental status.
3. Tachycardia; no other symptoms supportive of serotonin syndrome.
4. Rhabdomyolysis.
Patient has the following risk factors for their symptoms:
Recommendations:
-Mental status will likely improve with time.
-Consider psychiatry evaluation.
-Goal normoglycemia, hbA1c is 11.
-If patient does not improve in several days, then would consider further neurological imaging with MRI brain and possibly EEG.
-DVT prophylaxis.
Discussed patient care with: Dr. Leyva, the patient, nursing staff
Vital Signs and Labs
-
Vital Signs and Labs:
Vital Signs
Temp Pulse Resp BP Pulse Ox
98.8 F 114 20 147/73 99
06/11/24 15:36 06/11/24 15:15 06/11/24 15:15 06/11/24 15:00 06/11/24 15:15
Lab Results
06/11/24 00:59
PT 14.0 Sec (11.4-14.6) 06/11/24 00:59
INR 1.03 06/11/24 00:59
APTT 30.0 Sec (23.4-35.0) 06/11/24 00:59
Sodium Cancelled 06/11/24 20:00
Potassium Cancelled 06/11/24 20:00
BUN Cancelled 06/11/24 20:00
Glucose Cancelled 06/11/24 20:00
Calcium Cancelled 06/11/24 20:00
Phosphorus Cancelled 06/11/24 20:00
Vitamin B12 780 pg/ml (827-881) 06/11/24 00:59
Ur Buprenorphine Negative (Negative) 06/10/24 21:33
Medications
-
Active Medications
Generic Name Dose Route Start Last Admin
Trade Name Freq PRN Reason Stop Dose Admin
Acetaminophen 650 mg 06/11/24 00:17
Acetaminophen 650 Mg Rectal Suppository RECTAL 07/09/24 00:16
Q4HPRN PRN
mild pain/HEWITT/temp> 100.4F
Albuterol/Ipratropium 3 ml 06/11/24 00:17
Ipratropium 0.5/Albuterol 3 Mg (3 Ml Ampul) INH
R Q4HPRN PRN
shortness of breath
Protocol
Bisacodyl 10 mg 06/11/24 00:17
Bisacodyl 10 Mg Rectal Suppository RECTAL 07/09/24 00:16
[id number] PRN
constipation
Enoxaparin Sodium 40 mg 06/11/24 18:00
Enoxaparin Sodium 40 Mg/0.4 Ml Syringe SC 07/09/24 17:59
QPM SANTIAGO
Fentanyl Citrate 50 mcg 06/10/24 21:52
Fentanyl (50 Mcg/Ml) 100 Mcg/2 Ml Ampul IV 06/24/24 21:51
[id number] PRN
see protocol
Protocol
Insulin Human Regular 100 units in 100 mls @ 0 mls/hr 06/11/24 13:45 06/11/24 14:30
Novolin R Insulin Infusion IV 100 mls
PER PROTOCOL SANTIAGO Administration
Protocol
Per Protocol
Potassium Chloride/Dextrose/Sod Cl 20 meq in 1,000 mls @ 150 mls/hr 06/11/24 15:00 06/11/24 14:30
D5/0.45%Nss With Kcl 20 Meq IV 1,000 mls
.Q6H40M SANTIAGO Administration
Levothyroxine Sodium 100 mcg 06/12/24 08:00
Levothyroxine 100 Mcg (20 Mcg/Ml) Vial IV 07/10/24 07:59
DAILY SANTIAGO
Protocol
Ondansetron HCl 4 mg 06/11/24 00:17
Ondansetron 4 Mg/2 Ml Vial IV 07/09/24 00:16
Q6HPRN PRN
nausea and vomiting
Pantoprazole Sodium 40 mg 06/11/24 08:00 06/11/24 07:38
Pantoprazole Sodium 40 Mg/10 Ml Vial IV 07/09/24 07:59 40 mg
DAILY SANTIAGO Administration
Polyethylene Glycol 17 grams 06/11/24 00:17
Polyethylene Glycol Powder 17 Grams Packet PO 07/09/24 00:16
DAILYPRN PRN
constipation
Sodium Chloride 0 flush 06/11/24 15:00
Sodium Chloride 0.9% (Flush) Syringe IV 07/09/24 14:59
PER PROTOCOL SANTIAGO
Home Medications
�Medication �Instructions �Recorded
bupropion HCl 100 mg tablet 100 mg PO 06/10/24
gabapentin 400 mg capsule 400 mg PO USEASDIRECTD 06/10/24
ibuprofen 200 mg tablet 200 - 400 mg PO Q4HPRN PRN mild 06/10/24
pain
omeprazole-sodium bicarbonate 1 tab PO DAILY 06/10/24
metformin 500 mg tablet 500 mg PO BID 06/11/24
--- NOTE | 2024-06-11 16:12 | PTCARENOTE ---
Insulin gtt infusing per protocol (see worklist). Systems reviewed. Safe environment maintained.
[2024-06-11 16:39] LABS: Glucose - Point of Care 177 mg/dl (70-99)
--- NOTE | 2024-06-11 16:46 | PTCARENOTE ---
Attempted to wean multiple times today, hypoventilation volumes under 200, periods of apnea, no sedation throughout shift.
[2024-06-11] MEDS: LOVENOX 40 MG SC (17:34)
[2024-06-11 17:40] LABS: Glucose - Point of Care 177 mg/dl (70-99)
--- NOTE | 2024-06-11 17:40 | PTCARENOTE ---
Paulson removed @ 1256, pt DTV @ 8436. Pt bladder scanned @ 1740 for 287.
--- NOTE | 2024-06-11 18:28 | PTCARENOTE ---
spoke at length with pt daughter Mendy who called for update. Daughter reported that pt has had issues with depression/suicidal ideation in the past but expressed no plan. Mother also had hx with 'GERD', neuropathy, sciatic nerve pain from 'bad
epidural' and did not follow with doctor because she had no insurance and money issues. Daughter said that pt was diabetic and mother was on metformin and managing blood sugars by eating smaller meals. Pt disappeared and blocked people from
social media and did not return calls. Daughter also mentioned that pt's mother also has had issues with depression and injected herself with insulin that she had, sat in a chair and was found in 2000 by . Daughter asked to be
called with any changes. Her sister Esme Thompson is coming up from [place] tomorrow.
[2024-06-11 18:41] LABS: Glucose - Point of Care 236 mg/dl (70-99)
[2024-06-11 19:37] LABS: Blood Urea Nitrogen 11 mg/dl (7-17); Calcium 8.7 mg/dl (8.4-10.2); Carbon Dioxide 24 mmol/L (22-30); Chloride 108 mmol/L (98-107); Glucose 219 mg/dl (70-99); Magnesium 1.6 mg/dl (1.6-2.3); Phosphorus 2.9 mg/dl (2.5-4.5); Potassium 3.8 mmol/L (3.5-5.1); Sodium 143 mmol/L (135-145); eGFR > 60.00
[2024-06-11 19:37] LABS: Glucose - Point of Care 197 mg/dl (70-99)
[2024-06-11] MEDS: SUBLIMAZE 50 MCG IV (19:56)
[2024-06-11 20:42] LABS: Glucose - Point of Care 190 mg/dl (70-99)
[2024-06-11] MEDS: KCL ELIXIR 20 MEQ TUBE (20:50)
[2024-06-11] MEDS: MAGNESIUM SULFATE 50 IV (20:50)
--- NOTE | 2024-06-11 21:08 | PTCARENOTE ---
Addendum entered by Candis Isabel RN 06/11/24 22:42:
bladder scan and straight cath per work list, labs sent
Original Note:
report received, assessments per work list. patient opens eyes to name, nods 'yes' to every question. able to wiggle toes to command, but does not move arms to commands. does withdraw to pain both hands. grimacing, increased nonverbal pain cues,
tachypneic, coughing and biting ETT. medicated with fentanyl per prn order. OGT placement verified by air auscultation, clamped. no signs gastric distress. abdomen soft, hypoactive bowel sounds. no urine output. purewick in place. bladder scan per
work list. wrist restraints applied for patient safety. labs snet. orders received.
[2024-06-11 21:44] LABS: Glucose - Point of Care 190 mg/dl (70-99)
[2024-06-11 22:39] LABS: Glucose - Point of Care 189 mg/dl (70-99)
[2024-06-11 22:42] LABS: Blood Urea Nitrogen 10 mg/dl (7-17); Carbon Dioxide 24 mmol/L (22-30); Chloride 106 mmol/L (98-107); Glucose 230 mg/dl (70-99); Magnesium 2.3 mg/dl (1.6-2.3); Phosphorus 2.7 mg/dl (2.5-4.5); Sodium 139 mmol/L (135-145); eGFR > 60.00
[2024-06-11 23:40] LABS: Glucose - Point of Care 198 mg/dl (70-99)
--- NOTE | 2024-06-11 23:42 | PTCARENOTE ---
patient reassessed. lungs with coarse breath sounds bilaterally. will intermittently follow simple commands, moved hands to command one time. becomes tachypneic with stimulation. repositioned. care provided. d/w glass checker mds coordinator. to transition to
lantus tonight
[2024-06-12] VITALS (23 sets, daily range): BP systolic 128–157; BP diastolic 61–89; PULSE 139; O2SAT 98; BMI 27.3
[2024-06-12] MEDS: LANTUS 0.12 UNITS SC (00:04)
[2024-06-12 00:43] LABS: Glucose - Point of Care 196 mg/dl (70-99)
[2024-06-12 01:43] LABS: Glucose - Point of Care 201 mg/dl (70-99)
[2024-06-12] MEDS: LR 1000 IV ×2 (02:15→16:15)
--- NOTE | 2024-06-12 03:42 | PTCARENOTE ---
insulin gtt, fluids with potassium d/c 2 hours post lantus. IVF changed to LR. patient able to move legs to command very weakly. arms withdraw to discomfort. patient oriented to self only. continues to nod 'yes' to every question. no verbal or
nonverbal pain cues. care provided, labs sent. no urine output. bladder scan per work list
[2024-06-12 04:22] LABS: Blood Urea Nitrogen 8 mg/dl (7-17); Calcium 9.1 mg/dl (8.4-10.2); Carbon Dioxide 23 mmol/L (22-30); Chloride 106 mmol/L (98-107); Creatine Phosphokinase 300 U/L (30-135); Estimated Creatinine Clearance 82 ml/min; Glucose 200 mg/dl (70-99); Magnesium 1.9 mg/dl (1.6-2.3); Potassium 3.7 mmol/L (3.5-5.1); Sodium 140 mmol/L (135-145); eGFR > 60.00
[2024-06-12 04:30] LABS: B.E. 1.1 mmol/L; HCO3 23.6 mmol/L (21-28); O2 Saturation % 99.9 % (94-98); PCO2 31 mmHg (32-35); PO2 165 mmHg (83-108); pH 7.49 (7.35-7.45)
[2024-06-12 04:47] LABS: Hematocrit 44.1 % (37.0-47.0); Hemoglobin 14.7 g/dL (12.0-16.0); Mean Corp Hgb Conc. 33.3 g/dL (33.0-37.0); Mean Platelet Volume 11.2 fL (7.4-10.4); Platelet Count 164 10^3/uL (130-400); Red Cell Dist. Width 11.9 % (11.5-14.5); White Blood Cell Count 10.3 10^3/uL (4.8-10.8)
[2024-06-12] MEDS: MAGNESIUM SULFATE 100 IV (05:14)
[2024-06-12] MEDS: KCL ELIXIR 40 MEQ TUBE (05:14)
[2024-06-12] MEDS: NOVOLOG FLEXPEN-HIGH RESISTANCE 2 UNITS SC ×3 (05:52→17:41)
[2024-06-12 06:03] LABS: Glucose - Point of Care 192 mg/dl (70-99)
--- NOTE | 2024-06-12 08:12 | W.PN.CD ---
Today's Communication / Plan
-
qTC prolongation resolved, unclear etiology but suspect drug overdose
Myocardial injury likely in setting of her rhabdo
No evidence of underlying cardiac pathology
Cardiology will sign off. Please call with further questions
Impression / Plan
-
59-year-old woman who is found to be unresponsive and due to mental status has been intubated. Patient has been hemodynamically stable. Initial ECG showed sinus rhythm and otherwise was unremarkable however second ECG shows sinus tachycardia with
evidence of prolonged QT.
QT prolongation. May be multifactorial. Challenging since it is not clear exactly what medications or other substances patient has ingested. Now resolved
-Continue supportive treatment
-Replete K/Mg above 4/2 respectively
-Avoid drugs that prolong QT
Abnormal ECG. QT as noted above there is also some ST changes. On EKG today, ST changes and qTC prolongation essentially resolved. Please check daily ECGs.
-Continue supportive treatment and optimize respiratory status
-Echocardiogram unremarkable
-Troponin unremarkable and normalized
Tox. Urine positive for benzos unclear what else has been ingested list of potential meds available included gabapentin Wellbutrin and ibuprofen.
.
VDRF. Mostly intubated due to mental status.
-Management as directed by pulmonary/critical care.
.
Suspected drug overdose. Details of what ingested are unclear
CPK/rhabdo. Total CPK 3083, now downtrending. Troponin 0.24, now <0.012.
-Continued assessment and management as directed by primary team
-Continue to monitor CPK for resolution
.
DM.
-Hemoglobin A1c 11
-Glucose 200s. Management directed by primary team
.
Tox. Urine positive for benzos
TTE 06/11/24
Small appearing left ventricle with hyperdynamic systolic function.
No obvious wall motion abnormalities.
LV ejection fraction greater than 70% per visual estimation.
Normal RV size and function.
No significant valvular disease.
Insufficient TR for estimation of PASP.
No prior study available for comparison.
Physical Exam
Vital Signs/Labs
Vital Signs
Temp Pulse Resp BP Pulse Ox
37.4 C 111 24 140/68 100
06/12/24 03:23 06/12/24 07:40 06/12/24 07:40 06/12/24 04:00 06/12/24 07:48
06/11/24 06/12/24 06/13/24
06:59 06:59 06:59
Actual Weight 73.4 kg 76.6 kg
06/12/24 03:37
06/12/24 03:37
PT 14.0 Sec (11.4-14.6) 06/11/24 00:59
INR 1.03 06/11/24 00:59
APTT 30.0 Sec (23.4-35.0) 06/11/24 00:59
Magnesium 1.9 mg/dl (1.6-2.3) 06/12/24 03:37
TSH 21.50 uIU/ml (0.47-4.68) H 06/11/24 00:59
Free T4 0.80 ng/dl (0.78-2.19) 06/11/24 07:42
LAB Results
06/11/24 06/11/24 06/11/24
06:33 11:41 18:30
Troponin I 0.024 < 0.012 D Cancelled
Physical Exam
Constitutional: No acute distress and Other (intubated, wide awake)
Cardiovascular: Rhythm & rate is regular, Pedal edema is absent, Systolic murmur absent and Diastolic murmur absent
Respiratory: Respiratory effort normal and Rhonchi Present
Neuro/Psych: Alert
Data Reviewed
-
Date of Service: June 12, 2024
Medical Decision Making: Reviewed Test Results
EKG: Tracing Personally Visualized and interpreted
Echo: Tracing Personally Visualized and interpreted
X-Ray/CT/US/MRI/NUC/PET: Image Personally Visualized and interpreted
Labs: Labs Reviewed by me
[2024-06-12] MEDS: LEVOTHROID 100 MCG IV (08:17)
[2024-06-12] MEDS: PROTONIX IV 40 MG IV (08:19)
[2024-06-12] MEDS: NSS (PRESERVATIVE FREE) 10 ML IV (08:20)
--- NOTE | 2024-06-12 08:21 | W.PN.INTV ---
Today's Communication / Plan
Recommendations
Extubated today to nasal cannula
Maintain SpO2 >90-94%
Psychiatry consult
Aspiration precautions
HR ADMINISTRATOR eval
Goal BG 140�180 with basal�bolus insulin dosing
Continue levothyroxine ---> transition from IV to PO once HR ADMINISTRATOR evaluates her
Continue ICU level of care
Assessment
-
Assessment: 59-year-old female with a past medical history of DM type II who presents via [facility] from home with unresponsiveness. HPI obtained from medical records and the patient's roommate, Ghada Mejias, as patient is intubated and
most of her history is unobtainable. Patient previously used to live here in [place] from age 3 to age 17. She did live in [place] for some time but then moved to [place]. The patient has children as well. She went missing on 05/02/2024
and never told anyone where she went. She was eventually found by the police here in [place] but continue to stay at Ghada's home. On the morning BLADE CHANGER, Ghada said that she saw the patient on the floor and was minimally responsive and she
thought that she was just ignoring her. Later when she came home she found her unresponsive and 911 was called. When EMS arrived there was a THC vape pen nearby and multiple unmarked pills found with the patient, suspected to be Wellbutrin,
ibuprofen and omeprazole. BS was 134 and she was not responding to physical movement. The patient has no prior history of suicidal ideation however apparently her mother had committed suicide. In the ER she was obtunded and unresponsive and was
intubated. In the ER she was afebrile to 97.9 �F, pulse rate 107, BP 113/81 and saturating 96% on room air. Labs showed Hb 17.4, WBC WNL at 10.3, glucose 188, AST 52, creatinine kinase 1123, urinalysis with +1 ketones and trace leukocyte esterase,
and urine drug screen was positive for benzos. CT head showed no acute intracranial abnormality, and CXR showed bibasilar subsegmental atelectasis. She was brought to the ICU for further care and aerospace assembler services consulted for additional
management/recommendations.
Chronic conditions BLADE CHANGER: DM type II, Chiari I malformation (remainder of history is unknown at this point)
Impression:
#Ventilator dependent respiratory failure - extubated on 06/12/2024
#Unresponsive with suspected drug overdose (wellbutrin, NSAID and gabapentin) --> now awake and alert, but not speaking
#Polycythemia - resolved
#Acute respiratory failure with respiratory acidosis - resolved
#DM type II c/b hyperglycemia (A1c: 11 from 06/11/2024) and increased anion gap with metabolic acidosis due to early DKA --> DKA now resolved
#Transaminitis with rhabdomyolysis
#Prolonged QTc (682ms this AM on 06/11/2024)
#Subclinical hypothyroidism with severely elevated TSH (21.5 and 06/11/2024)
Plan:
- Continue with mechanical ventilation --> SAT/SBT this AM done and she was extubated to nasal cannula and is continuing to breath comfortably on nasal cannula at 4L/min with SpO2 99%
- Maintain SpO2 >90-94%
- Aspiration precautions
- CK this AM is 300 --> no longer need to continue IVF and can stop trending CK at this time
- She has been weaned off the insulin gtt after being bridged with 12 units of lantus
- Continue with basal-bolus insulin dosing with ISS high-resistance and lantus 15 units HS
- Consult diabetic ANODIZER
- Neurology consulted --> recs appreciated
- No need for EEG at this time
- Psychiatry also consulted given the concern for intentional drug overdose BLADE CHANGER
- Given that her TSH was >20 despite a normal fT4 at 0.8, on 06/11 I started supplemental levothyroxine at 100mcg per day
- Re-check her TSH and free T4 in 48-72hrs to assess for improvement and adjust her levothyroxine dose if needed with eventual transition to PO (first need HR ADMINISTRATOR to eval her)
- Trend QTc and if QRS started to widen >120ms then start bicarb
- Echo performed on 06/11/2024 showed hyperdynamic systolic LV function (EF >70%) w/ normal RV size & function with no significant valvular disease; no prior study available for comparison
- QTc this AM on EKG was 487 ms
- Maintain MAP>65
- Replete electrolytes with K>4, Mg>2
- Trend H/H and transfuse if needed to keep Hb>7g/dL; keep plt>20k, unless there is concern for bleeding then keep plt>50k
- prn nebulized bronchodilators - not currently bronchospastic
- PT/OT; HR ADMINISTRATOR consult
- PPI (home med)
- DVT ppx: LMWH
Critical care statement: A total of 38 minutes of critical care time was provided for this patient today. This includes management of unstable vital signs, evaluation of the patient at bedside, reviewing the patient's pertinent medical records
including radiographs, microbiology, laboratory evaluations, and discussion with primary team, consultants, pharmacy, nutrition, physical therapy, case management, charge nurse, critical care nursing, and respiratory therapy.
Data:
CT head without contrast 06/10/2024:
1. No CT evidence for acute intracranial hemorrhage or transcortical infarct.
2. Mild bilateral frontal lobe volume loss.
3. Chiari I malformation.
CXR 06/10/2024:
1. Endotracheal tube in appropriate position.
2. Mildly decreased bilateral lung volumes with mild subsegmental atelectasis in the basilar lower lobes.
CXR 06/12/2024:
1. Clear lungs.
2. No significant change compared to prior study.
TTE 06/11/2024:
TDS.
Small appearing left ventricle with hyperdynamic systolic function.
No obvious wall motion abnormalities.
LV ejection fraction greater than 70% per visual estimation.
Normal RV size and function.
No significant valvular disease.
Insufficient TR for estimation of PASP.
No prior study available for comparison.
Subjective Dataa
Subjective Data
Date of Service:
Date of Service: June 12, 2024
Chief Complaint: Duct Installer Follow Up
Subjective:
Patient seen and evaluated this morning. She is currently on a wean on PS: 8, PEEP of 5. Awake, alert and following commands although still remains minimally interactive. She is tachycardic with heart rate 125, saturating 99% and BP 156/89. She
was extubated to nasal cannula and there were no immediate complications. SpO2 remains 99% currently on 4 L/min.
Review of Systems
General: Other (Unable to obtain as patient is intubated; even once she was extubated she was not speaking)
Objective Data
Data Reviewed
Vital Signs / I&O / Oxygen:
Vital Signs
Temp Pulse Resp BP Pulse Ox
98.7 F 111 24 140/68 99
06/12/24 08:12 06/12/24 07:55 06/12/24 07:55 06/12/24 04:00 06/12/24 07:55
Intake and Output
06/11/24 06/12/24 06/13/24
06:59 06:59 06:59
Intake Total 750 / 850 4566 / 4566
Output Total 1600 / 1650 1599 / 1599
Balance -850 / -800 2967 / 2967
SaO2 [A/C] 98
SaO2 99
Nasal Cannula flow liters per 10
minute
Physical Exam
General: Respiratory Distress (negative), Comfortable, Chills (negative) and Sweats (negative)
HEENT: Normocephalic, Anicteric and Other (ETT in place)
Cardiovascular: S1-S2, Murmur (negative), Peripheral Edema (negative) and Other (Tachycardic)
Respiratory: Wheeze (negative), Crackles (negative), Rhonchi (negative), Non-Labored Respirations, ET Tube and Other (Mechanical breath sounds heard bilaterally)
GI: Soft, Non Distended, Non Tender and Normal Bowel Sounds
Neurology: Awake, Alert and Tremors (negative)
Skin: Warm, Dry, Cyanosis (negative) and Jaundice (negative)
Labs/Micro/Reports
Lab Data
06/12/24 03:37
06/12/24 03:37
Laboratory Results
06/12/24 06/12/24
04:08 08:37
pH 7.49 H 7.44
pCO2 31 L 37 H
pO2 165 H 161 H
HCO3 23.6 25.1
O2 Delivery Level
Microbiology
06/11/24 02:51 Nose MRSA Screen - Final
No Methicillin Resistant Staphylococcus aureus isolated.
[2024-06-12 08:43] LABS: B.E. 1.2 mmol/L; HCO3 25.1 mmol/L (21-28); PCO2 37 mmHg (32-35); PO2 161 mmHg (83-108); pH 7.44 (7.35-7.45)
--- NOTE | 2024-06-12 09:00 | PTCARENOTE ---
Rec'd pt at 0730 resting in bed. Rec'd pt with eyes closed but immediately opened them to verbal stimuli. Looks as stimuli, nodded and follows basic commands grasp hands. moved feet and GARCIA. Nodding yes and no. Nodded head no to having pain. Did
seem to nod head no when asked about taking pills intentionally but also seems somewhat unsure of where she is or what has happened. Reoriented. Skin is sl flushed wm and dry. Silicone border foam dressings intact on R hip and sacrum. Respirs- pt
with #8 Ett at the 21 cm cristopher retaped at the center of the mouth. Placed at 0730 on CPAP 5/PS 8 wean with 35% fio2- currently continues to tolerate with RR 18-27 and tv 330-390. Sats of 99%. ABG sent by Resp therapy and awaiting decision on
extubation. BS are sl coarse throughout and decreased at the bases. + cough and gag. Monitor - pt is in ST with rates of 115-125. + pulses. +1 gen anasarca. VS as documented. ABd is obese/round with + sl hypoactive BS. Orogastric tube clamped. Pt
straight cathed around 0600 and has not voided since. Purewick in place. IV LR infusing at 75 mls/hr via RAC IV site. Capped int intact R hand. Capped int intact L arm. Repositioned. Skin and mouth care given.
--- NOTE | 2024-06-12 09:27 | CM ---
CM spoke with patient's daughter/primary contact, Mendy Lobato # [phone], via phone this morning
Secondary Contact verified: Esme Thompson # [phone]
Daughter reported that Shaheen Martinez is a cousin; and NOT the Primary Contact for their mother
Daughter was unable to verify Pharmacy listed on the chart
Per daughter, Mendy, she last saw her mother the end of January 2024; at the end of March patient identified as a 'Missing Person'; patient changed her phone number; and was living in [place], [place]. Patient was staying with an old family friend,
Ghada; this friend found her unresponsive and called 911
Per daughter, patient has a history of DMII, GERD, Neuropathy in her legs; was taking her medication: metformin, gabapentin
PLOF: per daughter, mother was independent with ambulation and ADLs; driving a new vehicle
Daughters are traveling north from [place] and plan to [facility]
Discharge plan to be determined pending hospital course; CM will monitor and support as needed
--- NOTE | 2024-06-12 09:41 | PN.CDI ---
CDI
- -
CDI:
Physician Documentation Request
Admit Date: 06/10/24 23:58
Dear Doctor Miguelangel,
Patient admitted after found unresponsive.
ED Physician Documentation: 'Paramedics report the patient was last seen normal around 2 PM. When paramedics arrived they found the patient unresponsive. She was noted to be diaphoretic.'
06/12 Hospitalist PN: 'CPK/rhabdo. Total CPK 3083, now downtrending. Troponin 0.24, now <0.012.'
Based on the above, could you clarify in the progress notes, the appropriate diagnosis, if significant, that supports the above abnormalities and additional evaluation, monitoring and/or treatment rendered:
Traumatic rhabdomyolysis
Nontraumatic rhabdomyolysis
Other
Use of terms such as suspected, likely, concern for, or probable (associated with a specific diagnosis that is being evaluated, monitored, or treated as if it exists) are acceptable and can be coded in the inpatient setting, when documented at the
time of discharge.
Thank you,
Sultana Lewis RN, BSN
CDI Specialist
Available via [place] text
Please use your independent medical judgment in providing your response.
--- NOTE | 2024-06-12 10:11 | WOUNDNOTE ---
JOSE MARTIN RN note: Patient admitted with acute alteration in mental status.
See H&P for complete history.
PMH: Per ER note- Past Medical History: Reports Other (Unable to obtain due to obtundation)
Wound Location and type/assessment: Patient admitted with: R hip PI stage 2 and medial knees blanchable red. R hip with blanchable red skin and linear serous filled blisters, no drainage. Per ER note, patient was found lying on ground on her R side
and unresponsive. Per report and person she is currently living with, patient left family in [place]. Patient is intubated, plan is for extubation later today. Nurse Radha will check under sacral foam when next turned and notify this proposal lead writer
if need to assess. Heels are intact, foam adhesives in use, pillow under calves.
Appetite: NPO
Pressure redistribution devices in place: On [facility] air bed, turning schedule.
Plan: Changed silicone foam on R hip, if blisters start to drain can add adaptic under foam. B/L knee's assessed under foams. Adhesive foams changed on heels, pillow under calves.
Will confirm orders with hospitalist and updated nurse. Updated care plan and will follow as needed.
Note to case management of equipment requested for discharge: TBD
Recommend follow up at wound care center upon discharge, if wounds become worse.
--- NOTE | 2024-06-12 10:30 | PTCARENOTE ---
Continues to tolerate cpap 5/PS 8 wean with sats of 99%. Pt is tachycardic in the 115-120 range but is resting comfortably.
--- NOTE | 2024-06-12 12:15 | PTCARENOTE ---
Pt tolerated CPAP/PSV wean well. Dozes when left alone but easily is arousable. Dr. Squires updated and pt extubated to 4L nc at 1155- sats are 98%. HR in the 120-130's. Dr. Squires aware. Now that pt is extubated- voice is a soft whisper but is
able to answer some questions. Denied to this RN taking pills or trying to hurt herself stating ' I don't think so'. Wrist restraints removed. Plan of care reviewed with pt. Shown how to work the call stevens. Has not been able to void- Bladder scanned
for 495 mls- now that she is extubated- will let her try to void
[2024-06-12 12:21] LABS: Glucose - Point of Care 175 mg/dl (70-99)
--- NOTE | 2024-06-12 13:10 | PTCARENOTE ---
Pt unable to void. St Cathed for 550 mls of yellow urine. Overall has eyes shut when not disturbed but will readily open them to stimuli. Seems somewhat anxious when awake in that she seems to be trying to process where she is and what happened.
Reoriented. VS as documented. Call stevens in reach. GARCIA
--- NOTE | 2024-06-12 15:00 | PTCARENOTE ---
Assessment is overall unchanged. Dozes but easily awakens. Affect is very flat and voice remains a whisper. Pt is slow to answer questions but eventually will answer very basic ones. Does not give any insight to what happened that brought her into
the hospital. Pts friend Ghada whom she is staying with temporarily in to see her, however Pamela was not noticeably more conversant with her. GARCIA but vey weakly and needs encouragement to do so. Earlier when st cathed - need 3 people because her
legs are very stiff. Can move her feet but doesn't really lift her legs. Needs direction to complete a task. Tried giving her a few sips of water but coughed twice in doing so. Speech Therapy consulted. Call stevens in reach.
--- NOTE | 2024-06-12 15:25 | PN.DE.MGMTRT ---
Insulin Management
- -
06/12/2024: Diabetes Management Consult
59 year old female with PMH: T2DM, BiB EMS from home unresponsive at an acquaintance's house.
Unable to obtain much history from patient as she is somnolent and lethargic, opens eyes to name call but falls right back to sleep.
Information obtained from chart review. Pt was managed on glycemic protocol and was transitioned off to SQ insulin. A1C 11.2%, Cr 0.8, eGFR>60
Pt received Lantus 12 units @ [place] before transition off drip, FBG 192 this AM.
Pt was extubated earlier today, remains NPO, awaiting speech eval before adding diet
Pre-lunch glucose 175. Will need AC NovoLog when diet has been started. Consider starting NovoLog 5 units AC and starting Metformin 1000mg BID
Will increase Lantus to 15 units. Cont low corrective Q6 hrs-->change to AC when diet has been started.
Diabetes History
- -
Type of Diabetes: 2 requiring insulin
Pre-Admission Diabetes Regimen
06/11/24 06/11/24 06/12/24
19:11 22:21 02:30
Creatinine 0.8 0.8 Cancelled
06/12/24
03:37
Creatinine 0.7
Lab Results
Hemoglobin A1c 11.0 % (4.0-5.6) H 06/11/24 00:59
Insulin Pump Settings
IP Diabetes Regimen
06/11/24 06/11/24 06/11/24
15:29 16:28 17:28
Glucose
POC Glucose 198 H 177 H 177 H
06/11/24 06/11/24 06/11/24
18:28 19:11 19:25
Glucose 219 H
POC Glucose 236 H 197 H
06/11/24 06/11/24 06/11/24
20:30 21:32 22:21
Glucose 230 H
POC Glucose 190 H 190 H
06/11/24 06/11/24 06/12/24
22:27 23:29 00:32
Glucose
POC Glucose 189 H 198 H 196 H
06/12/24 06/12/24 06/12/24
01:30 02:30 03:37
Glucose Cancelled 200 H
POC Glucose 201 H
06/12/24 06/12/24
05:51 12:10
Glucose
POC Glucose 192 H 175 H
Meal type: Lunch
Meal type: Breakfast
Patient Education
--- NOTE | 2024-06-12 15:38 | W.PN.HOSP.TC ---
Today's Communication/Plan
-
Extubated with stable respiratory status.
Speech evaluation
Advance diet.
Transition to subcu insulin once stable oral intake.
Transition to oral oral levothyroxine.
Psychiatry evaluation.
Assessment / Plan
Assessment / Plan
Impression:
Altered mental status, suspected toxic metabolic encephalopathy versus seizure with postictal, versus drug overdose
VDRF
-intubated in ED on 06/10
Prolonged QT.
Rhabdomyolysis nontraumatic mild
Untreated diabetes with hemoglobin A1c 11.
Untreated hypothyroidism.
Plan:
Altered mental status secondary to toxic metabolic encephalopathy.
Seizure, versus suspected drug overdose
Allowed chronic neurologic versus psychiatric illness
Intubated in ED.
Urine drug screen positive for benzodiazepine.
CT head with no acute abnormalities
Extubated on 06/12
Stable respiratory status
Speech and swallow evaluation
Neurology input appreciated
Pending psychiatry evaluation.
Prolonged QT.
Negative troponin.
Echo 06/11 with normal LVEF at 70%. Normal RV size and function.
Continue monitoring electrolytes.
Follow ECG with improved QTc
Cardiology input noted.
Diabetes likely untreated with hemoglobin A1c 11.
Hyperglycemic
Elevated serum acetone
Possibly mild DKA in combination with contraction alkalosis.
Initiated on insulin drip while intubated.
Continue serial blood glucose monitoring.
Continue IV fluids
Transition to subcu insulin once diet advanced.
Untreated hypothyroidism.
TSH 21.5. Free T40.8
Initiated on IV levothyroxine. Transition to oral once diet advanced.
Follow-up with TFTs
Anticipated Discharge: > 48 hours
Subjective/Interval History
-
Date of Service: June 12, 2024
Objective Data
-
Labs:
Laboratory Results
06/12/24 06/12/2424
03:37 04:08 08:37
WBC 10.3
Hgb 14.7
Hct 44.1
Plt Count 164 D
HCO3 23.6 25.1
Sodium 140
Potassium 3.7
Chloride 106
Carbon Dioxide 23
BUN 8
Creatinine 0.7
Glucose 200 H
Calcium 9.1
Vital Signs:
Vital Signs
Temp Pulse Resp BP Pulse Ox
98.5 F 133 21 151/74 98
06/12/24 15:32 06/12/24 15:00 06/12/24 15:00 06/12/24 15:00 06/12/24 15:00
I&O
06/11/24 06/12/24 06/13/24
06:59 06:59 06:59
Intake Total 750 / 850 4566 / 4641 675 / 675
Output Total 1600 / 1650 1599 / 1599 550 / 550
Balance -850 / -800 2967 / 3042 125 / 125
Physical Exam
-
General: Well Developed and No Apparent Distress
HEENT: Normocephalic, Atraumatic and Moist Mucous Membranes
Respiratory: Clear to Auscultation
Cardiac: Regular Rhythm and S1/S2; Negative Murmur, Rub or Gallop
GI: Soft, Nontender, Nondistended and Normal Bowel Sounds; Negative Organomegaly
Rectal: Deferred by Provider
Musculoskeletal: No Clubbing, No Cyanosis and No Edema
Skin: Negative Rash
Neuro: Awake, Alert, Oriented, Nonfocal/Grossly Intact and Other
Psych: Calm and Other (Flat affect minimally communicative)
--- NOTE | 2024-06-12 15:45 | PTOTSP ---
Speech Language Pathology
Pt seen for clinical bedside swallow evaluation. Pt drowsy with largely aphonic vocal quality. P.O. trials of puree, ice chips, and thin liquids provided. Oral holding at times, requiring verbal cueing to initiate swallow. No overt signs of
aspiration. Pt is at risk for aspiration given recent extubation, lethargy, and mostly aphonic vocal quality.
Recommend:
(1) NPO
(2) Oral care 4x/day with suctioning as needed
(3) Allow ice chips sparingly post oral care given supervision per Aspiration Risk Hydration Protocol (ARHP)
(4) Non-oral meds
(5) CREW DISPATCHER to continue to follow
--- NOTE | 2024-06-12 16:30 | PTCARENOTE ---
Assessment is unchanged. Worked with PT and with assist of 2 sat on the side of the bed for several minutes. Was able to follow basic commands but overall is weak and continues to need a lot of direction. Was able to lift her legs once sitting up
which she was having difficulty doing in bed. Tolerating 2l nc. VS as documented. HR mostly in the 130's. Currently resting back in bed. Skin and mouth care given. Call stevens in reach.
[2024-06-12] MEDS: LOVENOX 40 MG SC (17:43)
[2024-06-12 17:49] LABS: Glucose - Point of Care 166 mg/dl (70-99)
--- NOTE | 2024-06-12 18:00 | PTCARENOTE ---
Repositioned. No changes in assessment
--- NOTE | 2024-06-12 19:15 | PTCARENOTE ---
Pts 3 daughters in from [place]- Pt sl tearful when seeing them. Voice is still a whisper but did hear her say Thank You for coming. Oncoming RN and this RN spoke extensively with 2 of her daughters Mendy and Esme- phone #'s in emergency
contact. The daughters relayed that the pt left [place] about 6 weeks ago, left with some possessions but left other personal possessions scattered in various places in each daughters houses. They relayed that she has struggled with
depression and the path her life has taken. They feel like her actions were very thought out and intentional. The night before she left, her daughter Esme said that she had been watching her daughter (the patients granddaughter) and gave no
indication that she was leaving and said nothing to any of her children about leaving [place]. When they couldn't find her or get a hold of her they filed a missing persons report. She apparently was staying at rest stops on the way up to [place].
Once in [facility] was pulled over by the police but per the daughters must have answered their questions appropriately and did not want them contacted. The police were only able to inform the daughters of limited information. According to the
daughters she had done this in the past (when Esme was 16) and the girls had to file a missing persons report at that time as well. They relayed that Ghada Mejias who she has been staying with is the current regional owner operator truck driver of the house that Pamela grew up
in and has a strong attachment to. Ghada had reached out to [facility] after finding out she was traveling to [place] and offered her a place to stay temporarily- currently she has been there over a month and per the girls Ghada has expressed a desire for
her to work on finding other accommodations as this wasn't meant to be permanent. Ghada who was in to see her today said that the day she came in- she had neatly put everything away, all the labels were taken off of her pill bottles and the
daughters feel as if her mom may have felt she had no other options/avenues left. The daughters relay that they care about their mother and both over the summer have had long conversations with her, but are unable to house her in each of their
current living situations. In the past they have done that and Pamela proved to be unreliable. They relayed that for a while she was living with a roommate and it was a good living arrangement and then Pamela just up and left and the roommate who was
also her landlord did not accept her back in. The daughters will be up in [place] until 06/13 when they have to return to [place]. They very much want Psych to see her and for her to get help.
--- NOTE | 2024-06-12 19:18 | W.PN.UPDATE ---
Update Note
Progress Note Update
59 yr old F who was found unresponsive at a friends house. Hx was provided by this friend when pt first presented to ED. Friend said that pt seemed fine the night prior. Saw pt laying down in AM before work & thought she was sleeping, when she
returned home and saw pt still laying there became concerned. Bag with some medication was found next to pt - contained wellbutrin 100mg, ibuprofen 200mg & Omeprazole/Sodium Bicarb 20-1100mg, as well as a vape pen. Also has an rx for 400mg TID with
instructions to increase dose. Pt came to [place] about 6 weeks ago from [place], was reported as a missing person Mar 2024 - unclear what happened, though patient reported to have changed her number when she came to [place] and seems to have kept in contact with
2 daughters (also live in [place] - this is as per CM note). According to daughter, pt was independent, had a new car recently, does not appear to have been depressed and no hx of SI as far as daughters and pts friend are aware of.
As per H&P on this admission:
'On arrival in the emergency department the patient was obtunded and unresponsive. She was intubated immediately. Initial gas was actually unremarkable with mild respiratory acidosis. She was afebrile blood pressure was stable at 120/60 and she
was satting 95% on room air. CBC was unremarkable. Electrolytes and BUN/creatinine also normal. UA was unremarkable. CT of the head shows no nothing acute, carry 1 malformation noted...Urine was positive for benzodiazepine and THC.'
Psychiatry was consulted to elucidate if there is a psychiatric component to whatever it is that happened, which pt is unfortunately unable to clarify herself yet as she is unable to speak just yet following extubation this AM.
Saw pt at bedside, introduced myself - pt clearly weak and at times trying to whisper response, but cannot make out what she says.
Psychiatry will return to assess further once pt better able to verbally engage
--- NOTE | 2024-06-12 20:55 | PTCARENOTE ---
Handoff report received from off going RN. Patient received in bed on LR at 75 ml/hr. The patient is oriented to person and place. Whispers when she speaks and barely audible. Plan of care for the shift reviewed with the patient and the patient's
daughters. Pupils are +3 and reactive. Very weak/poor bilateral uppers and lower extremities strength. The patient is sinus tachy on the monitor with HR 130s. Afebrile. Palpable pulses throughout. Diminished breath sounds throughout. SpO2 at 95% on
room air. +BS. Bladder scan and straight catheterization protocol reviewed with the patient. Mouth care provided. Patient turned and repositioned. Family remains at the bedside.
[2024-06-12] MEDS: LANTUS 0.15 UNITS SC (22:21)
[2024-06-12 22:32] LABS: Glucose - Point of Care 179 mg/dl (70-99)
[2024-06-13] VITALS (27 sets, daily range): BP systolic 92–144; BP diastolic 37–72; PULSE 126–137; O2SAT 92; BMI 26.9
[2024-06-13] MEDS: NOVOLOG FLEXPEN-HIGH RESISTANCE 2 UNITS SC ×4 (00:11→17:52)
[2024-06-13 00:24] LABS: Glucose - Point of Care 165 mg/dl (70-99)
--- NOTE | 2024-06-13 00:52 | PTCARENOTE ---
Patient reassessed. remains oriented to time and place. Pt's unable to void . Bladder scanned for 965 ml. Straight cath procedure teaching provided.Encouragement and support provided as the patient verbalized being 'scared.' Showed and explained to
the patient all materials being utilized and each steps to be taken. Pt straight cath for 1 liter. Rescanned for 0 cc. Pt turned and repositioned.
[2024-06-13 03:45] LABS: Hematocrit 42.4 % (37.0-47.0); Hemoglobin 14.5 g/dL (12.0-16.0); Mean Corp Hgb Conc. 34.2 g/dL (33.0-37.0); Mean Corpuscular Hgb 30.5 pg (27.0-31.0); Mean Corpuscular Volume 89.3 fL (81.0-99.0); Mean Platelet Volume 11.3 fL (7.4-10.4); Platelet Count 164 10^3/uL (130-400); Red Blood Cell Count 4.75 10^6/uL (4.20-5.40); Red Cell Dist. Width 11.9 % (11.5-14.5); White Blood Cell Count 12.9 10^3/uL (4.8-10.8)
[2024-06-13 03:56] LABS: Blood Urea Nitrogen 9 mg/dl (7-17); Calcium 9.3 mg/dl (8.4-10.2); Carbon Dioxide 25 mmol/L (22-30); Chloride 101 mmol/L (98-107); Estimated Creatinine Clearance 82 ml/min; Glucose 182 mg/dl (70-99); Potassium 3.9 mmol/L (3.5-5.1); Sodium 137 mmol/L (135-145); eGFR > 60.00
--- NOTE | 2024-06-13 04:17 | PTCARENOTE ---
Patient reassessed. No changes from the previous assessment. Pt cleansed with CHG wipes. Patient repositioned. Safety measures maintain. Call stevens is within reach.
[2024-06-13 04:28] LABS: TSH Reflex To Free T4 8.79 uIU/ml (0.47-4.68)
[2024-06-13 04:57] LABS: Free T4 1.03 ng/dl (0.78-2.19)
[2024-06-13] MEDS: LR 1000 IV ×2 (05:24→17:52)
[2024-06-13 06:05] LABS: Glucose - Point of Care 167 mg/dl (70-99)
--- NOTE | 2024-06-13 07:19 | PTCARENOTE ---
Vital signs filed for previous shift from 06/12 1900-06/13 0700.
--- NOTE | 2024-06-13 08:12 | PTCARENOTE ---
Rec'd pt at 0700. Pt alert and awake, orientedx2, reoriented to place and situation. Pt answering questions appropriately, doesn't converse much unless questions are asked. Flat affect. Voice quality soft. Follows commands, GARCIA with gen weakness.
Monitor ST 130's. Lungs CTA/dim, poor inspiratory effort. +BS, abd soft/nt. NPO.
--- NOTE | 2024-06-13 08:27 | W.PN.INTV ---
Today's Communication / Plan
Recommendations
Keep SpO2 >90-94%
Psychiatry consult
Aspiration precautions
DESKTOP PUBLISHING SPECIALIST following
Goal BG 140�180 with basal�bolus insulin dosing
Continue levothyroxine ---> transition from IV to PO once DESKTOP PUBLISHING SPECIALIST clears her to take PO meds; lower LT4 to 80mcg today given improvement in TSH
Will consider downgrading to IMU level of care today if she remains stable; if transferred out then pulmonary service will continue to follow along.
Assessment
-
Assessment: 59-year-old female with a past medical history of DM type II who presents via [facility] from home with unresponsiveness. HPI obtained from medical records and the patient's roommate, Ghada Mejias, as patient is intubated and
most of her history is unobtainable. Patient previously used to live here in [place] from age 3 to age 17. She did live in [place] for some time but then moved to [place]. The patient has children as well. She went missing on 05/02/2024
and never told anyone where she went. She was eventually found by the police here in [place] but continue to stay at Ghada's home. On the morning MANAGER TECHNICAL SERVICES, Ghada said that she saw the patient on the floor and was minimally responsive and she
thought that she was just ignoring her. Later when she came home she found her unresponsive and 911 was called. When EMS arrived there was a THC vape pen nearby and multiple unmarked pills found with the patient, suspected to be Wellbutrin,
ibuprofen and omeprazole. BS was 134 and she was not responding to physical movement. The patient has no prior history of suicidal ideation however apparently her mother had committed suicide. In the ER she was obtunded and unresponsive and was
intubated. In the ER she was afebrile to 97.9 �F, pulse rate 107, BP 113/81 and saturating 96% on room air. Labs showed Hb 17.4, WBC WNL at 10.3, glucose 188, AST 52, creatinine kinase 1123, urinalysis with +1 ketones and trace leukocyte esterase,
and urine drug screen was positive for benzos. CT head showed no acute intracranial abnormality, and CXR showed bibasilar subsegmental atelectasis. She was brought to the ICU for further care and coating manager services consulted for additional
management/recommendations.
Chronic conditions MANAGER TECHNICAL SERVICES: DM type II, Chiari I malformation (remainder of history is unknown at this point)
Impression:
#Ventilator dependent respiratory failure - extubated on 06/12/2024
#Unresponsive with suspected drug overdose (wellbutrin, NSAID and gabapentin) --> now awake and alert
#Sinus tachycardia
#Polycythemia - resolved
#Acute respiratory failure with respiratory acidosis - resolved
#DM type II c/b hyperglycemia (A1c: 11 from 06/11/2024) and increased anion gap with metabolic acidosis due to early DKA --> DKA now resolved
#Transaminitis with rhabdomyolysis
#Prolonged QTc (648 ms this AM on 06/13/2024) - improving
#Subclinical hypothyroidism with severely elevated TSH (21.5 and 06/11/2024)
Plan:
- Patient was successfully extubated on 06/12/2024 and remains on room air with saturations of 92% and breathing comfortably
- Maintain SpO2 >90-94%
- Aspiration precautions
- CK on AM of 06/12 was 300 --> no longer need to continue IVF and can stop trending CK at this time
- Continue with basal-bolus insulin dosing with ISS high-resistance and lantus 15 units HS
- Diabetic SUPERVISOR DRIED YEAST on board
- Neurology consulted --> recs appreciated
- No need for EEG at this time
- Psychiatry also consulted given the concern for intentional drug overdose MANAGER TECHNICAL SERVICES
- Given that her TSH was >20 despite a normal fT4 at 0.8, on 06/11 I started supplemental levothyroxine at 100mcg per day --> her TSH is now 8.79; reduce LT4 to 80mcg IV daily
- Re-check her TSH and free T4 in another 48-72hrs to assess for improvement and adjust her levothyroxine dose if needed with eventual transition to PO (first need DESKTOP PUBLISHING SPECIALIST to eval her)
- Trend QTc and if QRS started to widen >120ms then start bicarb
- Echo performed on 06/11/2024 showed hyperdynamic systolic LV function (EF >70%) w/ normal RV size & function with no significant valvular disease; no prior study available for comparison
- QTc on AM of 06/12 via EKG was 487 ms; this AM it is 648ms on media center specialist
- Maintain MAP>65
- Replete electrolytes with K>4, Mg>2
- Trend H/H and transfuse if needed to keep Hb>7g/dL; keep plt>20k, unless there is concern for bleeding then keep plt>50k
- prn nebulized bronchodilators - not currently bronchospastic
- PT/OT; DESKTOP PUBLISHING SPECIALIST consult --> remains high risk of aspiration and recommended to keep NPO as of now; may need VFSS
- PPI (home med)
- DVT ppx: LMWH
Will consider downgrade patient to IMU level of care if remains stable today. Pulmonary service will continue to follow along if she is transferred out.
Total time spent today was 76 minutes for this encounter. Time includes reviewing laboratory test/imaging results, reviewing pertinent medical records, obtaining and reviewing medical history, performing an appropriate exam, ordering medications,
tests and procedures. Time also includes documentation of this encounter, coordinating patient care and communicating with other healthcare professionals. Total time does not include separately billed tests performed on this date of service.
Data:
CT head without contrast 06/10/2024:
1. No CT evidence for acute intracranial hemorrhage or transcortical infarct.
2. Mild bilateral frontal lobe volume loss.
3. Chiari I malformation.
CXR 06/10/2024:
1. Endotracheal tube in appropriate position.
2. Mildly decreased bilateral lung volumes with mild subsegmental atelectasis in the basilar lower lobes.
CXR 06/12/2024:
1. Clear lungs.
2. No significant change compared to prior study.
TTE 06/11/2024:
TDS.
Small appearing left ventricle with hyperdynamic systolic function.
No obvious wall motion abnormalities.
LV ejection fraction greater than 70% per visual estimation.
Normal RV size and function.
No significant valvular disease.
Insufficient TR for estimation of PASP.
No prior study available for comparison.
Subjective Dataa
Subjective Data
Date of Service:
Date of Service: June 13, 2024
Chief Complaint: Nurse Anesthetist Follow Up
Subjective:
Patient seen and evaluated today at bedside. DESKTOP PUBLISHING SPECIALIST saw her today and she is high risk for aspiration and n.p.o. recommended to continue. Patient is tachycardic with heart rate in the 130s, BP 144/64 and saturating 92% on room air. QTc 648 ms.
patient denies chest pain, SOB, HEWITT, abdominal pain, nausea, fevers or chills. Ask her if she took pills prior to arrival to try to hurt herself or if she just got them mixed up, and she says that she got them 'mixed up.'
Review of Systems
General: Other (Negative unless mentioned above)
Objective Data
Data Reviewed
Vital Signs / I&O / Oxygen:
Vital Signs
Temp Pulse Resp BP Pulse Ox
99.2 F 133 21 151/74 95
06/13/24 07:00 06/12/24 15:00 06/12/24 15:00 06/12/24 15:00 06/12/24 20:00
Intake and Output
06/12/24 06/13/24 06/14/24
06:59 06:59 06:59
Intake Total 4566 / 4641 1800 / 1800
Output Total 1599 / 1599 2150 / 2150
Balance 2967 / 3042 -350 / -350
SaO2 [CPAP/PSV] 99
SaO2 [A/C] 98
SaO2 95
Nasal Cannula flow liters per 2
minute
Physical Exam
General: Respiratory Distress (negative), Comfortable, Chills (negative) and Sweats (negative)
HEENT: Normocephalic and Anicteric
Cardiovascular: S1-S2, Murmur (negative), Peripheral Edema (negative) and Other (Tachycardic)
Respiratory: Wheeze (negative), Crackles (negative), Rhonchi (negative) and Non-Labored Respirations
GI: Soft, Non Distended, Non Tender and Normal Bowel Sounds
Neurology: Awake, Alert and Tremors (negative)
Skin: Warm, Dry, Cyanosis (negative) and Jaundice (negative)
Labs/Micro/Reports
Lab Data
06/13/24 03:35
06/13/24 03:35
Laboratory Results
06/12/24
08:37
pH 7.44
pCO2 37 H
pO2 161 H
HCO3 25.1
O2 Delivery Level
Microbiology
06/11/24 02:51 Nose MRSA Screen - Final
No Methicillin Resistant Staphylococcus aureus isolated.
[2024-06-13] MEDS: PROTONIX IV 40 MG IV (08:39)
[2024-06-13] MEDS: NSS (PRESERVATIVE FREE) 10 ML IV (08:39)
[2024-06-13] MEDS: LEVOTHROID 100 MCG IV (08:39)
[2024-06-13] MEDS: LOPRESSOR 5 MG IV (11:43)
[2024-06-13 11:47] LABS: Glucose - Point of Care 166 mg/dl (70-99)
--- NOTE | 2024-06-13 14:15 | W.PN.HOSP.TC ---
Addendum entered and electronically signed by Wesley Yang MD 06/13/24 16:24:
Seen and examined by me independently in collaboration with the clinical medical transcriptionist Carine.
Lab data and imaging data reviewed.
Addendum as below :
Patient is now extubated. No acute respiratory distress. Denies shortness of breath. Saturating well on room air.
Patient with weak voice and did not pass her speech and swallow eval. No hoarse voice. Follow ST tx. May persistent swallowing difficutly and dysphonia would obtain ENT eval.
Pt is alert and oriented to place and person. Seems constrained with her speech and dialogue. Not saying much to me.
Did say she sees a neuro who This prescribing above complaint and for neuropathy. History of seizures.
She cannot explain why her urine is positive for benzos. When checked with the [facility] pharmacy in [place] where she recently filled her prescriptions she is not on benzodiazepines.
Also she didnt answer my question about suicidal ideation or thoughts.
Suspect some TME still . Follow for improvements.
Neurology didnt Recommend further evaluations or interventions. Await psychiatry input.
With regards to prolonged QTc, diabetes mellitus with poor control ? new diagnosis, new hypothyroidism agree with note below.
discussed with TELEPHONE OPERATOR.
Discussed with friend at bedside [patient gave permission to talk to the friend]
Total time spent on today's encounter was 52 minutes which included time spent in counseling the patient/family regarding diagnosis and treatment plan as listed above, goals of care, and symptom management. Case was discussed with nursing staff,
specialists . All labs and imaging personally reviewed by me. Remainder the time spent in detailed review of previous records, lab data, imaging, and other medical provider documentation.
Original Note:
Today's Communication/Plan
-
Transfer to IMU, continue to keep n.p.o., psychiatry evaluation pending
Assessment / Plan
Assessment / Plan
Impression:
58-year-old female with unknown past medical history presents to ED of [facility] altered mental status, suspected toxic metabolic encephalopathy versus seizure with postictal, versus drug overdose requiring mechanical intubation. Extubated on .
Has prolonged QT, rhabdomyolysis mild, diabetes, hypothyroidism. Plan to figure out who PCP is and gain insight on patient's home medication list.
Plan:
Altered mental status secondary to toxic metabolic encephalopathy.
Seizure, versus suspected drug overdose
- Allowed chronic neurologic versus psychiatric illness
- Intubated in ED -> extubated 06/12/24 satting well on room air
- Urine drug screen positive for benzodiazepine.
- CT head with no acute abnormalities
- Speech and swallow evaluation continue NPO
- Neurology believes underlying action to not speak/provide full story psychiatric etiology more likely than neurologic
- Pending psychiatry evaluation
- Will downgrade to IMU at discretion of gum machine operator
Prolonged QT.
- Negative troponin.
- Echo 06/11 with normal LVEF at 70%. Normal RV size and function.
- Continue monitoring electrolytes.
- Follow ECG with improved QTc
- Cardiology following also suspected drug related changes.
Diabetes likely untreated with hemoglobin A1c 11.
- Hyperglycemic
- Elevated serum acetone
- Possibly mild DKA in combination with contraction alkalosis.
- Initiated on insulin drip while intubated -> transition to subQ
- Continue serial blood glucose monitoring
- Continue IV fluids
Elevated CK
� 1123 on admission -> 3083 -> 300
- Continue fluids
- Monitor
Untreated hypothyroidism.
- TSH 21.5 upon admission. Repeat TSH 8.79. Free T4 0.80
- Initiated on IV levothyroxine. Transition to oral once diet advanced.
Leukocytosis
- Afebrile, no complaints
- Today 12.9
- Trend
Neuropathy
� Patient states she is on gabapentin, does not remember dose
- Will try to find PCP and start home dose when possible
DVT enoxaparin
Full code
Anticipated Discharge: 24 - 48 hours
Subjective/Interval History
-
Date of Service: June 13, 2024
Objective Data
-
Labs:
Laboratory Results
06/13/24
03:35
WBC 12.9 H
Hgb 14.5
Hct 42.4
Plt Count 164
Sodium 137
Potassium 3.9
Chloride 101
Carbon Dioxide 25
BUN 9
Creatinine 0.7
Glucose 182 H
Calcium 9.3
Vital Signs:
Vital Signs
Temp Pulse Resp BP Pulse Ox
99.2 F 135 25 132/67 92
06/13/24 11:00 06/13/24 11:00 06/13/24 11:00 06/13/24 11:00 06/13/24 11:00
I&O
06/12/24 06/13/24 06/14/24
06:59 06:59 06:59
Intake Total 4566 / 4641 1800 / 1875 375 / 375
Output Total 1599 / 1599 2150 / 2150
Balance 2967 / 3042 -350 / -275 375 / 375
Review of Systems
-
History Source: Patient
EENT: Reports No Symptoms Reported
Respiratory: Reports No Symptoms
Cardiac: Reports No Symptoms
Abdomen/GI: Reports No Symptoms
Neuro: Reports No Symptoms
Psych: Reports Anxious
Physical Exam
-
General: No Apparent Distress
HEENT: Normocephalic
Respiratory: Wheezes (Inspiratory wheezes)
Cardiac: Regular Rhythm and S1/S2
GI: Soft, Nontender, Nondistended and Normal Bowel Sounds
Musculoskeletal: No Edema
Neuro: AO x 3
Psych: Anxious
--- NOTE | 2024-06-13 14:54 | PTCARENOTE ---
Pt HNV since last straight cath, bladder scanned for 913ml. Pt states she does not feel need to void. Order obtained and indwelling justice placed without difficulty.
--- NOTE | 2024-06-13 16:06 | PHANOTE ---
Spoke with [facility] pharmacy in [place], [place] ([phone]) to confirm list of medications.
Home medication list updated in [facility].
Of note:
1. Pt filled 30 day supply of pantoprazole 40mg daily in February 2024, but it does not appear to be a chronic medication.
2. Patient last filled Glargine insulin and Semaglutide in 2021.
[facility] did not have any medication allergies listed- nurse confirmed with pt as well.
Arben Garcia, Pharm.D., BCPS
--- NOTE | 2024-06-13 16:11 | PTCARENOTE ---
No changes in assessment.
[2024-06-13] MEDS: LIORESAL PO ×2 (16:17→22:04)
[2024-06-13] MEDS: LOVENOX 40 MG SC (17:52)
[2024-06-13 17:59] LABS: Glucose - Point of Care 162 mg/dl (70-99)
--- NOTE | 2024-06-13 19:59 | PTCARENOTE ---
Handoff report received from off going RN. Patient received in bed AAOx2- to self and place. The patient answers questions and follows commands appropriately. Pt's speech is slightly more audible than previously. MAEx4 and improved from previous.
Plan of care for the shift reviewed with the patient. Questions encouraged. Pt's sinus tachy on the monitor. diminished breath sounds. Paulson catheter is draining yellow urine. Paulson care completed. The patient brushed her own teeth. Positive
reinforcement provided. Pt assists with turns and repositioning. Call stevens is within reach. Bed in the lowest position. All needs are met at this time.
[2024-06-13 22:00] LABS: Glucose - Point of Care 147 mg/dl (70-99)
[2024-06-13] MEDS: LANTUS 0.15 UNITS SC (22:03)
[2024-06-14] VITALS (21 sets, daily range): BP systolic 108–142; BP diastolic 51–110; BMI 26.5
[2024-06-14 00:10] LABS: Glucose - Point of Care 141 mg/dl (70-99)
[2024-06-14] MEDS: NOVOLOG FLEXPEN-HIGH RESISTANCE 1 UNITS SC ×4 (00:16→16:42)
--- NOTE | 2024-06-14 00:21 | PTCARENOTE ---
Patient reassessed. No changes from the previous assessment. Safety measures maintained.
[2024-06-14 04:21] LABS: Hematocrit 40.5 % (37.0-47.0); Hemoglobin 13.6 g/dL (12.0-16.0); Mean Corp Hgb Conc. 33.6 g/dL (33.0-37.0); Mean Corpuscular Volume 89.4 fL (81.0-99.0); Mean Platelet Volume 11.3 fL (7.4-10.4); Platelet Count 168 10^3/uL (130-400); Red Blood Cell Count 4.53 10^6/uL (4.20-5.40); Red Cell Dist. Width 11.9 % (11.5-14.5); White Blood Cell Count 13.3 10^3/uL (4.8-10.8)
--- NOTE | 2024-06-14 04:41 | PTCARENOTE ---
Patient reassessed. AAOx2 and in a bright mood. The patient is smiling and joking with staff. Stating that Noah Lobato is her crush and laughing. The patient is apologetic when she is unable to recall or answer a question. Pt assisted with CHG
wiping herself. The patient turned and is repositioning herself without difficulty. All needs are met at this time. Bed in the lowest position. Call stevens is within reach.
[2024-06-14 04:44] LABS: ALT (SGPT) 19 U/L (0-35); AST (SGOT) 25 U/L (14-36); Albumin 3.3 g/dl (3.5-5.0); Alkaline Phosphatase 67 U/L (38-126); Blood Urea Nitrogen 13 mg/dl (7-17); Calcium 8.9 mg/dl (8.4-10.2); Carbon Dioxide 25 mmol/L (22-30); Chloride 102 mmol/L (98-107); Creatine Phosphokinase 114 U/L (30-135); Estimated Creatinine Clearance 96 ml/min; Glucose 165 mg/dl (70-99); Potassium 4.1 mmol/L (3.5-5.1); Sodium 139 mmol/L (135-145); Total Bilirubin 1.1 mg/dl (0.2-1.3); Total Protein 6.4 g/dl (6.3-8.2); eGFR > 60.00
[2024-06-14 06:23] LABS: Glucose - Point of Care 140 mg/dl (70-99)
[2024-06-14] MEDS: LIORESAL PO (07:38)
[2024-06-14] MEDS: PROTONIX IV 40 MG IV (07:59)
[2024-06-14] MEDS: NSS (PRESERVATIVE FREE) 10 ML IV (07:59)
[2024-06-14] MEDS: LR 1000 IV (08:00)
--- NOTE | 2024-06-14 08:31 | W.PN.INTV ---
Today's Communication / Plan
Recommendations
Keep SpO2 >90-94%
Psychiatry consult --> rec'd inpatient psych
She will need 1:1 now that she admits that she wanted to kill herself prior to admission; safe tray when her food comes as well
Aspiration precautions
EMPLOYMENT MANAGER following ---> passed today and ok for diet and PO meds
Change IV LT4 to PO; recheck TFTs in few days and she can continue to have this monitored as an outpatient; would rec'd outpatient endo follow up
Goal BG 140�180 with basal�bolus insulin dosing
Patient is stable for downgrade out of ICU to telemetry. No additional recommendations at this time. Office Mover/Pulmonary service will now sign off. Please reconsult if there are any additional questions/concerns, or if patient's respiratory
status deteriorates.
Assessment
-
Assessment: 59-year-old female with a past medical history of DM type II who presents via [facility] from home with unresponsiveness. HPI obtained from medical records and the patient's roommate, Ghada Mejias, as patient is intubated and
most of her history is unobtainable. Patient previously used to live here in [place] from age 3 to age 17. She did live in [place] for some time but then moved to [place]. The patient has children as well. She went missing on 05/02/2024
and never told anyone where she went. She was eventually found by the police here in [place] but continue to stay at Ghada's home. On the morning SUPERVISOR ELECTRONICS PROCESSING, Ghada said that she saw the patient on the floor and was minimally responsive and she
thought that she was just ignoring her. Later when she came home she found her unresponsive and 911 was called. When EMS arrived there was a THC vape pen nearby and multiple unmarked pills found with the patient, suspected to be Wellbutrin,
ibuprofen and omeprazole. BS was 134 and she was not responding to physical movement. The patient has no prior history of suicidal ideation however apparently her mother had committed suicide. In the ER she was obtunded and unresponsive and was
intubated. In the ER she was afebrile to 97.9 �F, pulse rate 107, BP 113/81 and saturating 96% on room air. Labs showed Hb 17.4, WBC WNL at 10.3, glucose 188, AST 52, creatinine kinase 1123, urinalysis with +1 ketones and trace leukocyte esterase,
and urine drug screen was positive for benzos. CT head showed no acute intracranial abnormality, and CXR showed bibasilar subsegmental atelectasis. She was brought to the ICU for further care and warehouse technician services consulted for additional
management/recommendations.
Chronic conditions SUPERVISOR ELECTRONICS PROCESSING: DM type II, Chiari I malformation (remainder of history is unknown at this point)
Impression:
#Ventilator dependent respiratory failure - extubated on 06/12/2024
#Unresponsive with suspected drug overdose (wellbutrin, NSAID and gabapentin) --> now awake and alert
#Sinus tachycardia
#Polycythemia - resolved
#Acute respiratory failure with respiratory acidosis - resolved
#DM type II c/b hyperglycemia (A1c: 11 from 06/11/2024) and increased anion gap with metabolic acidosis due to early DKA --> DKA now resolved
#Transaminitis with rhabdomyolysis
#Prolonged QTc (648 ms this AM on 06/13/2024) - normal as of this AM
#Subclinical hypothyroidism with severely elevated TSH (21.5 and 06/11/2024)
Plan:
- Patient was successfully extubated on 06/12/2024 and remains on room air with saturations of 92% and breathing comfortably
- Maintain SpO2 >90-94%
- Aspiration precautions
- CK on AM of 06/12 was 300 --> no longer need to continue IVF and can stop trending CK at this time
- Continue with basal-bolus insulin dosing with ISS high-resistance and lantus 15 units HS
- Diabetic FUNCTIONAL SUPPORT ANALYST on board
- Neurology consulted --> recs appreciated
- No need for EEG at this time
- Psychiatry also consulted given the concern for intentional drug overdose SUPERVISOR ELECTRON[employer] PROCESSING --> she will need inpatient psych: needs 1:1 given she admitted she wanted to kill herself SUPERVISOR ELECTRON[employer] PROCESSING
- Given that her TSH was >20 despite a normal fT4 at 0.8, on 06/11 I started supplemental levothyroxine at 100mcg per day --> her repeat TSH on 06/13 was 8.79 --> reduced LT4 to 80mcg IV daily
- Re-check her TSH and free T4 in another 48-72hrs to assess for improvement and adjust her levothyroxine dose if needed; she passed her swallow eval today so I will change her levothyroxine from IV to PO now
- Trend QTc and if QRS started to widen >120ms then start bicarb
- Echo performed on 06/11/2024 showed hyperdynamic systolic LV function (EF >70%) w/ normal RV size & function with no significant valvular disease; no prior study available for comparison
- QTc on AM of 06/12 via EKG was 487 ms; yesterday AM it is 648ms on laboratory monitor; this morning his QTc is 426 ms and EKG this AM shows 457ms
- Maintain MAP>65
- Replete electrolytes with K>4, Mg>2
- Trend H/H and transfuse if needed to keep Hb>7g/dL; keep plt>20k, unless there is concern for bleeding then keep plt>50k
- prn nebulized bronchodilators - not currently bronchospastic
- PT/OT; EMPLOYMENT MANAGER consult --> initially she failed EMPLOYMENT MANAGER eval with high aspiration risk however on 06/14 she passed EMPLOYMENT MANAGER eval and is okay for regular texture solids with thin liquids; medications okay to take whole with liquid or in pur�e if having
difficulty
- PPI (home med)
- DVT ppx: LMWH
Patient is stable for downgrade out of ICU to telemetry. No additional recommendations at this time. Office Mover/Pulmonary service will now sign off. Thank you for allowing us to be involved in the care of this patient. Please reconsult if there
are any additional questions/concerns, or if patient's respiratory status deteriorates.
Total time spent today was 37 minutes for this encounter. Time includes reviewing laboratory test/imaging results, reviewing pertinent medical records, obtaining and reviewing medical history, performing an appropriate exam, ordering medications,
tests and procedures. Time also includes documentation of this encounter, coordinating patient care and communicating with other healthcare professionals. Total time does not include separately billed tests performed on this date of service.
Data:
CT head without contrast 06/10/2024:
1. No CT evidence for acute intracranial hemorrhage or transcortical infarct.
2. Mild bilateral frontal lobe volume loss.
3. Chiari I malformation.
CXR 06/10/2024:
1. Endotracheal tube in appropriate position.
2. Mildly decreased bilateral lung volumes with mild subsegmental atelectasis in the basilar lower lobes.
CXR 06/12/2024:
1. Clear lungs.
2. No significant change compared to prior study.
TTE 06/11/2024:
TDS.
Small appearing left ventricle with hyperdynamic systolic function.
No obvious wall motion abnormalities.
LV ejection fraction greater than 70% per visual estimation.
Normal RV size and function.
No significant valvular disease.
Insufficient TR for estimation of PASP.
No prior study available for comparison.
Subjective Dataa
Subjective Data
Date of Service:
Date of Service: June 14, 2024
Chief Complaint: Office Mover Follow Up
Subjective:
Patient was seen and evaluated today at bedside. She is much more interactive today and speaking with normal volume of her voice. She had told the speech-language pathologist that she wanted to kill herself prior to admission and she also told
nursing the same thing this morning -she currently is not saying that she wants to hurt herself right this moment. She currently denies chest pain, shortness of breath or any anxiety. She is tachycardic with heart rate 126, BP 133/72 and on room
air breathing comfortably. QTc is 426ms on laboratory monitor.
Review of Systems
General: Other (Negative unless mentioned above)
Objective Data
Data Reviewed
Vital Signs / I&O / Oxygen:
Vital Signs
Temp Pulse Resp BP Pulse Ox
98.6 F 126 15 130/51 95
06/14/24 07:35 06/14/24 08:00 06/14/24 08:00 06/14/24 08:00 06/14/24 04:00
Intake and Output
06/13/24 06/14/24 06/15/24
06:59 06:59 06:59
Intake Total 1800 / 1875 1800 / 1875 225 / 225
Output Total 2150 / 2150 2375 / 2375
Balance -350 / -275 -575 / -500 225 / 225
SaO2 [CPAP/PSV] 99
SaO2 [A/C] 98
SaO2 95
Nasal Cannula flow liters per 2
minute
Physical Exam
General: Respiratory Distress (negative), Comfortable, Chills (negative) and Sweats (negative)
HEENT: Normocephalic and Anicteric
Cardiovascular: S1-S2, Murmur (negative), Peripheral Edema (negative) and Other (Tachycardic)
Respiratory: Wheeze (negative), Crackles (Bibasilar), Rhonchi (negative) and Non-Labored Respirations
GI: Soft, Non Distended, Non Tender and Normal Bowel Sounds
Neurology: AO x 3 and Tremors (negative)
Skin: Warm, Dry, Cyanosis (negative) and Jaundice (negative)
Labs/Micro/Reports
Lab Data
06/14/24 04:13
06/14/24 04:13
Microbiology
06/11/24 02:51 Nose MRSA Screen - Final
No Methicillin Resistant Staphylococcus aureus isolated.
--- NOTE | 2024-06-14 09:14 | PTCARENOTE ---
Rec'd pt at 0700. Pt AAOx3, voice with stronger quality today. Pt states that she feels well. When asked if she remembers how she got in the hospital pt stated that she 'did something stupid'. Pt admitted to taking medication to 'hurt herself',
states that she took some 400mg pills of Neurontin but unsure of how many, states that she didn't have a whole bottle. Does not admit to taking any other pills and is not suicidal at this time. Pt tearful and states that her daughters came up here
to see her. Hospitalist resident updated of conversation with pt. Monitor ST 120-130's. Lungs CTA. +BS, moderate formed/semi hard stool on bedpan, pt states that she gets constipated at times. Paulson draining yellow urine.
--- NOTE | 2024-06-14 09:38 | W.PN.HOSP.TC ---
Addendum entered and electronically signed by eWsley Yang MD 06/14/24 14:06:
Seen and examined by me independently in collaboration with the pesticide use medical coordinator Carine.
Lab data and imaging data reviewed.
Addendum as below :
Patient alert and oriented.
Voice stronger. Able to engage in conversation better.
Admits to taking overdose of Neurontin. According to the daughter she got recently filled at an local pharmacy. Apparently it was prescribed by neurologist for neuropathy per patient. She did it with suicidal intent but now feels guilty of doing
it.
Respiratory status stable since extubation. Remains on room air.
S1 plus S2 heard. Sinus tachycardia without any arrhythmia noted. Denies missing any beta-arie at home. Asymptomatic. Infection was hypo-hypothyroid on presentation. I suspect the sinus tachycardia may be the OD from neurontin. No clinical
symptoms of infection. Afebrile. Will try lopressor to slow the rate for now. If persistent then eval further. ECHO on this adx hyperdynamic EF No VHD .Normal RV.
patient says she is known diabetic on metformin. Does not take an insulin. Restart metformin and continue on sliding scale and follow blood sugars. Poor control noted.
Had a long discussion with daughter who lives in [place]. When she got the news of mom being admitted to the hospital she traveled on Saturday and she was here till yesterday and she drove back to [place].
Mom disappeared from her home town without informing family for the last 6 weeks. They infact filed a missing person report. With the help of mom's cousin now she is in with a friend in [facility] for the last 4 weeks.
She has hx of depression but no prior suicidal attempts. No current psychiatry care.
Await psychiatry input.
Tx to tele.
DC Paulson in am and voiding trail once on floor.
MICHAEL RN.
Original Note:
Today's Communication/Plan
-
Downgrade to telemetry
hold gabapentin as patient intentionally overdosed on it
psychiatry recommendations pending
one-to-one observation
restart regular diet
Lopressor for tachycardia
Assessment / Plan
Assessment / Plan
Impression:
58-year-old female with unknown past medical history presents to ED of [facility] altered mental status, suspected toxic metabolic encephalopathy versus seizure with postictal, versus drug overdose requiring mechanical intubation. Extubated on .
Has prolonged QT, rhabdomyolysis mild, diabetes, hypothyroidism. Receives all her home meds from Neurologist. Home list reconciled and patient restarted on meds. No prescription of benzodiazepine noted on PDMP or on home med list. Patient did
admit to nurse that she take too much gabapentin to hurt herself but she felt 'stupid' for taking it. She does not recall taking any and benzodiazepines.
Plan:
Intentional drug overdose with Neurontin
- Intubated in ED -> extubated 06/12/24 satting well on room air
- Urine drug screen positive for benzodiazepine (which does have cross reactivity with gabapentin)
- CT head with no acute abnormalities
- Advance to regular diet with aspiration precautions per speech therapy recommendations
- Neurology believes underlying action to not speak/provide full story psychiatric etiology more likely than neurologic
- Pending psychiatry evaluation now that pt is talking
- One to one observation
- Will downgrade to tele
Prolonged QT.
- Negative troponin.
- Echo 06/11 with normal LVEF at 70%. Normal RV size and function.
- Continue monitoring electrolytes.
- Follow ECG with improved QTc
- Repeat EKG today - QTC improving, but still long
- Cardiology following also suspected drug related changes.
Diabetes likely untreated with hemoglobin A1c 11.
- Hyperglycemic
- Elevated serum acetone
- Possibly mild DKA in combination with contraction alkalosis.
- Initiated on insulin drip while intubated -> transition to subQ
- Patient does admit to having a dx of diabetes and previously on metformin. Unsure of dose. No recent prescription filled according to pharmacist in [place] I spoke to yesterday.
- Start metformin 500 BID
- Continue serial blood glucose monitoring
- Continue IV fluids while NPO
Tachycardia
- Continued tachy
- D-dimer to rule out PE. No chest pain or SOB
- Tachy common with gabapentin OD and withdrawal
- Patient stated previously on Lopressor by security incident response engineer, but discontinued due to palpitations (?)
� 5 mg IV Lopressor, then start 25 mg metoprolol twice daily
Elevated CK
� 1123 on admission -> 3083 -> 300 ->114
- d/c fluids now starting regular diet
- Monitor
Untreated hypothyroidism.
- TSH 21.5 upon admission. Repeat TSH 8.79. Free T4 0.80
- Initiated on IV levothyroxine. Transition to oral once diet advanced.
Leukocytosis
- Afebrile, no complaints of UTI, runny nose, fever, chills, burning with urination, increased frequency, diarrhea.
- 12.9 -> 13.3
- Chest x-ray clear, Repeat UA
- Trend
Neuropathy
� Patient states she is on gabapentin, does not remember dose
- Will try to find PCP and start home dose when possible
- Will put on hold as pt stated she intentionally tried to OD on it.
DVT enoxaparin
Full code
Anticipated Discharge: 24 - 48 hours
Subjective/Interval History
-
Date of Service: June 14, 2024
Objective Data
-
Labs:
Laboratory Results
06/14/24
04:13
WBC 13.3 H
Hgb 13.6
Hct 40.5
Plt Count 168
Sodium 139
Potassium 4.1
Chloride 102
Carbon Dioxide 25
BUN 13
Creatinine 0.6
Glucose 165 H
Calcium 8.9
Total Bilirubin 1.1
AST 25
ALT 19
Alkaline Phosphatase 67
Vital Signs:
Vital Signs
Temp Pulse Resp BP Pulse Ox
98.6 F 126 15 130/51 95
06/14/24 07:35 06/14/24 08:00 06/14/24 08:00 06/14/24 08:00 06/14/24 04:00
I&O
06/13/24 06/14/24 06/15/24
06:59 06:59 06:59
Intake Total 1800 / 1875 1800 / 1875 225 / 225
Output Total 2150 / 2150 2375 / 2375
Balance -350 / -275 -575 / -500 225 / 225
Review of Systems
-
History Source: Patient
Constitutional: Reports No Symptoms
EENT: Reports No Symptoms Reported
Respiratory: Reports No Symptoms
Cardiac: Reports No Symptoms
Abdomen/GI: Reports No Symptoms
Genitourinary: Reports No Symptoms
Musculoskeletal: Reports No Symptoms
Skin: Reports No Symptoms
Neuro: Reports No Symptoms
Physical Exam
-
General: No Apparent Distress
HEENT: Normocephalic
Respiratory: Clear to Auscultation
Cardiac: Regular Rhythm and S1/S2
GI: Soft, Nontender, Nondistended and Normal Bowel Sounds
Musculoskeletal: No Edema
Skin: Warm
Neuro: AO x 3
Psych: Calm
[2024-06-14] MEDS: LOPRESSOR 5 MG IV (11:06)
[2024-06-14 11:29] LABS: Glucose - Point of Care 146 mg/dl (70-99)
--- NOTE | 2024-06-14 11:30 | PTOTSP ---
SPEECH THERAPY SWALLOW THERAPY FOLLOW UP NOTE:
Patient exhibits grossly functional oropharyngeal swallow at this time. Patient with no history of dysphagia/pneumonia per patient report. Patient remains at risk for aspiration and related complications given recent endotracheal intubation
secondary to VDRF and drug overdose as per patient report. Mentation improved at this time; Vocal quality improved though still mildly weak. Recommend initiate oral diet of Regular texture solids, thin liquids. Medications whole with thin liquid as
best tolerated; If difficulty, whole in puree. Aspiration precautions: 100% supervision with meals to monitor for signs of aspiration; Partial assistance as needed; Upright positioning; Small single sips/bites; Slow rate; Oral care 3x/day; Only eat
when awake/alert; D/c oral diet and make NPO if any decline in mental/respiratory status. Discussed with Dr. Squires, RN, Dr. Yang, Dr. Sanchez. ST to continue to follow, assess diet tolerance and modify as appropriate, provide continued diagnostic
swallow therapy as appropriate.
RECOMMEND:
1) Regular texture solids, thin liquids
2) Medications whole with liquid as best tolerated, or in puree if having difficulty
3) Aspiration precautions: 100% supervision with meals to monitor for signs of aspiration; Partial assistance as needed; Upright positioning; Small single sips/bites; Slow rate; Oral care 3x/day; Only eat when awake/alert; D/c oral diet and make NPO
if any decline in mental/respiratory status
4) Oral care 3x/day
5) ST to follow
[2024-06-14 11:37] LABS: Urine Albumin Trace (Neg - Trace); Urine Bilirubin Negative (Negative); Urine Character Clear (Clear); Urine Color Yellow; Urine Glucose Negative (Negative); Urine Ketone 2+ (Negative); Urine Leukocyte Negative (Negative); Urine Nitrite Negative (Negative); Urine Occult Blood 1+ (Negative); Urine Urobilinogen 3+ (Neg - 1+)
[2024-06-14 12:09] LABS: Urine Amorphous Seen; Urine Squamous Cell 0-2 /LPF (Few)
--- NOTE | 2024-06-14 14:22 | W.PN.UPDATE ---
Update Note
Progress Note Update
Chart reviewed- pt seen- 45 minutes spent
Today pt 'woke up' - in terms of being able to talk more about herself. She admitted that she had overdosed. She was soft spoken and hesitant in her interaction with me, but making an effort to answer my questions. She claims not to remember much
of her suicide attempt or her trip to [place] from [place].
With me today she was nonspontaneous in speech, and did not offer information unless I specifically asked her something. Even then she was vague.
She told me she has been depressed 'for a long time.' She was not sleeping through the night, was feeling down and alone. She did not tell anyone how she was feeling. She left her job in [place].- 'sometime in April'- and drove to [place]. 'I wanted to
go to the [facility] where we used to go when I was a kid.' Denies any hostory of elevated mood, decreased need for sleep, alcohol or substance abuse/
Pt cannot recall (or does not want to tell me) what prompted her to overdose on her medication. Does say that she is glad she didn't succeed.
Past Psych Hx- was on Wellbutrin. She says she stopped taking it- which contradicts the note from the ER that Wellbutrin (Buproprion 100 mg) bottle was found with her.
Says she was tried on Cymbalta, but her psychiatrist took her off it. Thinks she was on something else starting with D (she did not recognize Duloxetine or Doxepin.)
Fam Psych Hx- Says her mom committed suicide - 'took her pain pills- no one expected it.' Also her mom's sister committed suicide (I did not ask the means, and she did not tell me of her own accord.)
Med Hx -diabetes, neuropathy
MSE- Depressed, O x 3, cognition slow, not formally tested.
Speech soft and hard to hear
Thoughts - hopeless and helpless
Mood depressed; suicidal ideation and attempt 4 days ago; says she is not planning to commit suicide today.
Insight and judgment impaired
Plan- Pt will need inpatient psychiatric care. She indicated that she would agree to this. If not, then a 302 would need to be considered.
No antidepressant rx'ed yet.
We will follow.
[2024-06-14] MEDS: GLUCOPHAGE 500 MG PO (16:40)
[2024-06-14] MEDS: LIORESAL 5 MG PO ×2 (16:40→22:19)
[2024-06-14] MEDS: LOVENOX 40 MG SC (16:43)
[2024-06-14] MEDS: LEVOTHROID 80 MCG IV (16:43)
[2024-06-14 16:53] LABS: Glucose - Point of Care 136 mg/dl (70-99)
--- NOTE | 2024-06-14 17:56 | PTCARENOTE ---
Pt remains pleasant and cooperative throughout shift. Denies any thoughts of wanting to harm herself. Safe environment maintained, remains on 1:1 observation. Tolerating regular diet without issue
--- NOTE | 2024-06-14 19:15 | PTCARENOTE ---
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 RA Sat 94%, pt calm/quietly coloring. 1:1 maintained.
[2024-06-14] MEDS: LOPRESSOR 25 MG PO (20:09)
[2024-06-14] MEDS: LANTUS 0.15 UNITS SC (22:19)
[2024-06-14 22:29] LABS: Glucose - Point of Care 114 mg/dl (70-99)
[2024-06-15] VITALS (10 sets, daily range): BP systolic 103–124; BP diastolic 55–102; PULSE 90; BMI 26.1
[2024-06-15 03:24] LABS: % Basophils 0.5 % (0-2); % Eosinophils 1.4 % (0-6); % Immature Granulocytes 0.2 % (0-0.5); % Monocytes 8.1 % (1.7-9.3); % Neutrophils 60.8 % (42.2-75.2); Absolute Eosinophils 0.1 10^3/uL (0-0.7); Absolute Lymphocytes 2.5 10^3/uL (1.2-3.4); Absolute Monocytes 0.7 10^3/uL (0.1-0.6); Absolute Neutrophils 5.2 10^3/uL (1.4-6.5); Hematocrit 38.5 % (37.0-47.0); Hemoglobin 13.1 g/dL (12.0-16.0); Mean Corpuscular Hgb 30.5 pg (27.0-31.0); Mean Corpuscular Volume 89.5 fL (81.0-99.0); Mean Platelet Volume 11.6 fL (7.4-10.4); Nucleated Red Blood Cells % 0 %; Platelet Count 167 10^3/uL (130-400); White Blood Cell Count 8.5 10^3/uL (4.8-10.8)
[2024-06-15 03:43] LABS: Blood Urea Nitrogen 19 mg/dl (7-17); Calcium 8.7 mg/dl (8.4-10.2); Carbon Dioxide 27 mmol/L (22-30); Chloride 104 mmol/L (98-107); Estimated Creatinine Clearance 96 ml/min; Glucose 115 mg/dl (70-99); Potassium 3.5 mmol/L (3.5-5.1); Sodium 141 mmol/L (135-145); eGFR > 60.00
[2024-06-15 04:52] LABS: Free T4 1.23 ng/dl (0.78-2.19)
[2024-06-15] MEDS: SYNTHROID 100 MCG PO (05:24)
[2024-06-15 06:59] LABS: Glucose - Point of Care 115 mg/dl (70-99)
[2024-06-15] MEDS: GLUCOPHAGE 500 MG PO ×2 (07:25→17:05)
[2024-06-15] MEDS: NOVOLOG FLEXPEN-HIGH RESISTANCE 1 UNITS SC (07:26)
[2024-06-15] MEDS: PROTONIX 40 MG PO (07:26)
[2024-06-15] MEDS: LIORESAL 5 MG PO (07:26)
[2024-06-15] MEDS: LOPRESSOR 25 MG PO ×2 (07:26→20:28)
--- NOTE | 2024-06-15 07:30 | PTCARENOTE ---
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 patient AAOx4, 1:1 supervision continuing. Will review orders. tele status. patient
[2024-06-15 07:51] LABS: Glucose - Point of Care 141 mg/dl (70-99)
--- NOTE | 2024-06-15 08:46 | PN.DE.MGMTRT ---
Insulin Management
- -
06/15/2024: Diabetes Management F/U:
59 year old female with PMH: T2DM, BiB EMS from home unresponsive at an acquaintance's house, intubated in field, extubated 06/12.
Unable to obtain much history from patient as she is somnolent and lethargic, opens eyes to name call but falls right back to sleep.
Information obtained from chart review. Pt was managed on glycemic protocol and was transitioned off to SQ insulin. A1C 11.2%, Cr 0.8, eGFR>60
Pt awake, alert, oriented, siting up in chair able to discuss diabetes management prior to admission.
States she was taking Ozempic and Jardiance sometime back but both were d/c'd due to adverse SE, but continued taking MFM.
Glucose has been stable and in range, premeal 136 to 146, FBG 115 this AM.
06/14 was started on Regular diet by primary team. Of note, her AC NovoLog insulin has been on hold
Will resume AC NovoLog 5 units and increase Metformin to 1000mg BID, pt states was taking 500mg [employer].
Cont Lantus 15 units and corrective insulin with meals.
Pt states she is very comfortable with self injection of insulin using pen
Requested Pt's nurse Susana to reinforce insulin adm.
Will return tomorrow to provide monitor and insulin instructions.
Diabetes History
- -
Type of Diabetes: 2 requiring insulin
Pre-Admission Diabetes Regimen
06/15/24
03:16
Creatinine 0.6
Lab Results
Hemoglobin A1c 11.0 % (4.0-5.6) H 06/11/24 00:59
Insulin Pump Settings
IP Diabetes Regimen
06/13/24 06/14/24 06/14/24
23:56 11:18 16:42
Glucose
POC Glucose 141 H 146 H 136 H
06/14/24 06/15/24 06/15/24
22:18 03:16 06:48
Glucose 115 H
POC Glucose 114 H 115 H
Meal type: Breakfast
Meal type: Breakfast
Amount consumed: 40%
Patient Education
--- NOTE | 2024-06-15 10:12 | PTCARENOTE ---
Patient working with speech therapy
[2024-06-15] MEDS: WELLBUTRIN XL (24 hour extended release) 150 MG PO (11:53)
[2024-06-15] MEDS: CLARITIN 10 MG PO (11:53)
[2024-06-15 12:05] LABS: Glucose - Point of Care 119 mg/dl (70-99)
[2024-06-15] MEDS: NOVOLOG FLEXPEN SC ×2 (12:20→17:49)
[2024-06-15] MEDS: NOVOLOG FLEXPEN-HIGH RESISTANCE SC (12:21)
--- NOTE | 2024-06-15 14:21 | W.PN.HOSP.TC ---
Today's Communication/Plan
-
Discontinue Paulson catheter
Physical therapy assessment
Continue blood glucose monitoring
Continue current dose of insulin/metformin.
Ongoing placement to inpatient psych
Assessment / Plan
Assessment / Plan
Impression:
58-year-old female with unknown past medical history presents to ED of [facility] altered mental status, suspected toxic metabolic encephalopathy versus seizure with postictal, versus drug overdose requiring mechanical intubation. Extubated on .
Has prolonged QT, rhabdomyolysis mild, diabetes, hypothyroidism. Receives all her home meds from Neurologist. Home list reconciled and patient restarted on meds. No prescription of benzodiazepine noted on PDMP or on home med list. Patient did
admit to nurse that she take too much gabapentin to hurt herself but she felt 'stupid' for taking it. She does not recall taking any and benzodiazepines.
Plan:
Intentional drug overdose with Neurontin
- Intubated in ED -> extubated 06/12/24 satting well on room air
- Urine drug screen positive for benzodiazepine (which does have cross reactivity with gabapentin)
- CT head with no acute abnormalities
- Advance to regular diet with aspiration precautions per speech therapy recommendations
- Neurology believes underlying action to not speak/provide full story psychiatric etiology more likely than neurologic
- One to one observation
- Downgrade to tele
Prolonged QT.
- Negative troponin.
- Echo 06/11 with normal LVEF at 70%. Normal RV size and function.
- Continue monitoring electrolytes.
- Follow ECG with improved QTc
-Improved
Tachycardia
- Continued tachy
- D-dimer to rule out PE. No chest pain or SOB
- Tachy common with gabapentin OD and withdrawal
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
� 5 mg IV Lopressor, then start 25 mg metoprolol twice daily
Diabetes likely untreated with hemoglobin A1c 11.
- Hyperglycemic
- Elevated serum acetone
- Possibly mild DKA in combination with contraction alkalosis.
- Initiated on insulin drip while intubated -> transition to subQ
- Patient does admit to having a dx of diabetes and previously on metformin. Unsure of dose. No recent prescription filled according to pharmacist in [place] I spoke to yesterday.
- Start metformin 500 BID
- Continue serial blood glucose monitoring
- Continue IV fluids while NPO
Elevated CK
� 1123 on admission -> 3083 -> 300 ->114
- d/c fluids now starting regular diet
- Monitor
Untreated hypothyroidism.
- TSH 21.5 upon admission. Repeat TSH 8.79. Free T4 0.80
- Initiated on IV levothyroxine. Transition to oral once diet advanced.
Leukocytosis
- Afebrile, no complaints of UTI, runny nose, fever, chills, burning with urination, increased frequency, diarrhea.
-Improved
Neuropathy
� Patient states she is on gabapentin, does not remember dose
- Will try to find PCP and start home dose when possible
- Will put on hold as pt stated she intentionally tried to OD on it.
DVT enoxaparin
Full code
Anticipated Discharge: 24 - 48 hours
Subjective/Interval History
-
Date of Service: June 15, 2024
Objective Data
-
Labs:
Laboratory Results
06/15/24
03:16
WBC 8.5
Hgb 13.1
Hct 38.5
Plt Count 167
Sodium 141
Potassium 3.5
Chloride 104
Carbon Dioxide 27
BUN 19 H
Creatinine 0.6
Glucose 115 H
Calcium 8.7
Vital Signs:
Vital Signs
Temp Pulse Resp BP Pulse Ox
98 F 102 16 103/59 100
06/15/24 11:34 06/15/24 12:01 06/15/24 12:01 06/15/24 12:01 06/15/24 07:31
I&O
06/14/24 06/15/24 06/16/24
06:59 06:59 06:59
Intake Total 1800 / 1875 1515 / 1515 120 / 120
Output Total 2375 / 2375 1525 / 1525 450 / 450
Balance -575 / -500 -10 / -10 -330 / -330
Physical Exam
-
General: No Apparent Distress
HEENT: Normocephalic
Respiratory: Clear to Auscultation
Cardiac: Regular Rhythm and S1/S2
GI: Soft, Nontender, Nondistended and Normal Bowel Sounds
Musculoskeletal: No Edema
Skin: Warm
Neuro: AO x 3
Psych: Calm
--- NOTE | 2024-06-15 14:27 | CM ---
CM following re: discharge planning.
Reviewed pt's chart, met with pt.
Pt reports she lives in [place], came to [place] 2.5 weeks ago and was staying with a family member in the house she grew up. Pt admitted to significant h/o depression and pt stated she intentionally overdosed by taking psychotropic pills because she wanted
to ended up her life due to being severally depressed. Pt stated her sister committed suicide. Pt stated she agrees with going to a mental health clinic to get better.
Psychiatry evaluation noted - inpatient psychiatric hospitalization level of care requested: 201 if pt agrees and 302 commitment if pt does not agree.
PT and OT evaluations noted - SNF level of care recommended. per PT and OT pt is doing better, not dependent on care anymore and SNF level of care recommended.
Pt must be independent with physical ability in order to g to inpatient psychiatric hospital. PT and OT will continue working with the pt to improve her physically.
CM will make a referral to inpatient psychiatric hospitals when pt improved her functional/physical ability.
Pt has no insurance. [facility].
D/C plan: Inpatient psychiatric hospital when physically improved: voluntarily 201 on involuntarily 302.
CM will follow to assist pt with discharge to inpatient psychiatric hospital.
--- NOTE | 2024-06-15 16:16 | W.PN.UPDATE ---
Update Note
Progress Note Update
Pt seen, chart reviewed, discussed with nursing staff. Pt is alert and oriented, calm and cooperative, answering questions in a clear/goal-directed manner, making good eye contact. Affect is appropriate and stable, able to smile, mood stable. Pt
denies any further SI, states she was 'fed up' before and came to [place] with SI to OD. Pt denies any impulse to OD now, states she cannot remember the actual incident, does not know where her vehicle is- left her personal belongings there. Pt states
she was renting a room in a house/house-sitting in [place], but can't return there. She expects her family friend to come in today to help her contact her dtrs since she does not have her phone. Pt reports she had stopped taking Wellbutrin XL-
prescribed along with Gabapentin by her Neurologist in [place]. Pt reports having depression off and on for 22 years, since she had 'post- depression'. She states she has tried several other antidepressants over the years, but had bad side
effects. No history of inpatient treatment, had one 24-hour observation in the past. Pt shows no signs of severe depression or psychosis, reports good appetite.
Imp: Unspecified depressive d/o, with reported OD on Gabapentin. Denies SI now, does not appear to be at immediate risk of self harm
Rec: Can stop 1:1 supervision
Pt does not need inpatient psychiatric treatment. Will resume Wellbutrin XL 150 mg daily
Outpatient treatment, when medically stabilized. Will follow
[2024-06-15] MEDS: LOVENOX 40 MG SC (17:05)
[2024-06-15] MEDS: NOVOLOG FLEXPEN-HIGH RESISTANCE 2 UNITS SC (17:41)
[2024-06-15 17:50] LABS: Glucose - Point of Care 159 mg/dl (70-99)
--- NOTE | 2024-06-15 19:03 | PTCARENOTE ---
Have held the 5units of prandial insulin for lunch and dinner. had a small dinner and accu check at lunch was 119, held per Court Blood.
--- NOTE | 2024-06-15 19:30 | PTCARENOTE ---
Transferred to 339-2 via wheel chair on monitor
--- NOTE | 2024-06-15 20:30 | PTCARENOTE ---
Pt transferred from ICU to 3W via wheelchair. Pt 1 assist from wheelchair to bed, AAOX3, vitals stable BP: 153/74 HR 91, afebrile sating 91% RA. Pt oriented to room, call stevens within reach, placed on TELE monitor 21 (NS). Will continue to monitor.
[2024-06-15] MEDS: LANTUS 0.15 UNITS SC (21:34)
[2024-06-15 21:37] LABS: Glucose - Point of Care 114 mg/dl (70-99)
[2024-06-16] VITALS (7 sets, daily range): BP systolic 103–122; BP diastolic 57–69; PULSE 84; O2SAT 98; BMI 25.8
[2024-06-16] MEDS: SYNTHROID 100 MCG PO (06:21)
[2024-06-16 08:04] LABS: Glucose - Point of Care 117 mg/dl (70-99)
[2024-06-16] MEDS: NOVOLOG FLEXPEN-HIGH RESISTANCE SC ×3 (08:31→16:27)
[2024-06-16] MEDS: GLUCOPHAGE 500 MG PO ×2 (08:31→16:59)
[2024-06-16] MEDS: WELLBUTRIN XL (24 hour extended release) 150 MG PO (08:32)
[2024-06-16] MEDS: LOPRESSOR 25 MG PO ×2 (08:32→20:02)
[2024-06-16] MEDS: NOVOLOG FLEXPEN 5 UNITS SC (08:32)
[2024-06-16] MEDS: PROTONIX 40 MG PO (08:32)
--- NOTE | 2024-06-16 08:45 | PN.DE.MGMTRT ---
Insulin Management
- -
06/16/2024: Diabetes Management Follow up:
59 year old female with PMH: T2DM, BiB EMS from home unresponsive at an acquaintance's house, intubated in field, extubated 06/12.
Unable to obtain much history from patient as she is somnolent and lethargic, opens eyes to name call but falls right back to sleep.
Information obtained from chart review. Pt was managed on glycemic protocol and was transitioned off to SQ insulin. A1C 11.2%, Cr 0.8, eGFR>60
Pt awake, alert, oriented, siting up in chair able to discuss diabetes management prior to admission.
States she was taking Ozempic and Jardiance sometime back but both were d/c'd due to adverse SE, but continued taking metformin 500 mg BID. Today she states she has taken Basaglar (glargine) in the past.
06/14 was started on Regular diet by primary team. Of note, her AC NovoLog insulin has been on hold
06/15 AC NovoLog 5 units resumed, not given due to poor appetite, Metformin to 500mg BID.
06/16 Will stop AC novolog 5 units and continue Lantus 15 units and corrective insulin with meals.
Pt states she is very comfortable with self injection of insulin using pen, good return demonstration.
Requested Pt's nurse Lelo to reinforce insulin administration. Home pen needles provided to nurse. Patient states she has a working ReliOn glucose monitor with some strips and lancets. Reinforced to test prior to meals and HS. She states she
has no money no job or insurance. Will need assistance with purchasing insulin and supplies.
Will follow
Diabetes History
- -
Type of Diabetes: 2
Pre-Admission Diabetes Regimen
Lab Results
Hemoglobin A1c 11.0 % (4.0-5.6) H 06/11/24 00:59
Insulin Pump Settings
IP Diabetes Regimen
06/15/24 06/15/24 06/15/24
11:53 17:38 21:36
POC Glucose 119 H 159 H 114 H
06/16/24
08:01
POC Glucose 117 H
Meal type: Dinner
Meal type: Lunch
Amount consumed: 90%
Amount consumed: 100%
Patient Education
[2024-06-16 12:00] LABS: Glucose - Point of Care 76 mg/dl (70-99)
--- NOTE | 2024-06-16 15:29 | W.PN.HOSP.TC ---
Today's Communication/Plan
-
Medically optimized in terms of diabetes/blood glucose control.
Disposition efforts for patient without medical insurance coverage and requirements for diabetic treatment.
Continue physical therapy assessment to determine level of USP versus rehab.
Assessment / Plan
Assessment / Plan
Impression:
58-year-old female with unknown past medical history presents to ED of [facility] altered mental status, suspected toxic metabolic encephalopathy versus seizure with postictal, versus drug overdose requiring mechanical intubation. Extubated on .
Has prolonged QT, rhabdomyolysis mild, diabetes, hypothyroidism. Receives all her home meds from Neurologist. Home list reconciled and patient restarted on meds. No prescription of benzodiazepine noted on PDMP or on home med list. Patient did
admit to nurse that she take too much gabapentin to hurt herself but she felt 'stupid' for taking it. She does not recall taking any and benzodiazepines.
Plan:
Intentional drug overdose with Neurontin
- Intubated in ED -> extubated 06/12/24 satting well on room air
- Urine drug screen positive for benzodiazepine (which does have cross reactivity with gabapentin)
- CT head with no acute abnormalities
- Advance to regular diet with aspiration precautions per speech therapy recommendations
- Neurology believes underlying action to not speak/provide full story psychiatric etiology more likely than neurologic
-Psychiatry input appreciated. According to assessment patient with no suicidal ideation currently with no indication for inpatient psychiatric treatment.
Prolonged QT.
- Negative troponin.
- Echo 06/11 with normal LVEF at 70%. Normal RV size and function.
- Continue monitoring electrolytes.
- Follow ECG with improved QTc
-Improved
Tachycardia
- Continued tachy
- D-dimer to rule out PE. No chest pain or SOB
- Tachy common with gabapentin OD and withdrawal
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
� 5 mg IV Lopressor, then start 25 mg metoprolol twice daily
Diabetes likely untreated with hemoglobin A1c 11.
- Hyperglycemic
- Elevated serum acetone
- Possibly mild DKA in combination with contraction alkalosis.
-Initiated on subcutaneous insulin Lantus with addition of metformin.
Elevated CK
� 1123 on admission -> 3083 -> 300 ->114
- d/c fluids now starting regular diet
- Monitor
Untreated hypothyroidism.
- TSH 21.5 upon admission. Repeat TSH 8.79. Free T4 0.80
- Initiated on IV levothyroxine. Transition to oral
Leukocytosis
- Afebrile, no complaints of UTI, runny nose, fever, chills, burning with urination, increased frequency, diarrhea.
-Improved
Neuropathy
� Patient states she is on gabapentin, does not remember dose
- Will try to find PCP and start home dose when possible
- Will put on hold as pt stated she intentionally tried to OD on it.
DVT enoxaparin
Full code
Anticipated Discharge: Within 24 hours
Subjective/Interval History
-
Date of Service: June 16, 2024
Objective Data
-
Vital Signs:
Vital Signs
Temp Pulse Resp BP Pulse Ox
98.6 F 83 16 104/60 96
06/16/24 11:29 06/16/24 11:29 06/16/24 11:29 06/16/24 11:29 06/16/24 11:29
I&O
06/15/24 06/16/24 06/17/24
06:59 06:59 06:59
Intake Total 1515 / 1515 360 / 360
Output Total 1525 / 1525 650 / 650
Balance -10 / -10 -290 / -290
Physical Exam
-
General: No Apparent Distress
HEENT: Normocephalic
Respiratory: Clear to Auscultation
Cardiac: Regular Rhythm and S1/S2
GI: Soft, Nontender, Nondistended and Normal Bowel Sounds
Musculoskeletal: No Edema
Skin: Warm
Neuro: AO x 3
Psych: Calm
--- NOTE | 2024-06-16 16:16 | W.PN.UPDATE ---
Update Note
Progress Note Update
Pt seen, reviewed with hospitalist. Pt alert, calm, pleasant, sitting up in bed, mood good, affect appropriate. Pt denies any SI. She now has her phone and some belongings, brought to her by family friend. Pt states her vehicle is at her
friend's house. Pt unsure what her disposition plan is. She apparently had limited resources in [place].
Imp: Unspecified depressive d/o, with reported OD on Gabapentin. Consistently denies SI now, does not appear to be at immediate risk of self harm
Rec: Pt does not need inpatient psychiatric treatment. continue Wellbutrin XL 150 mg daily
Outpatient treatment, when medically stabilized. Will follow
[2024-06-16 16:22] LABS: Glucose - Point of Care 123 mg/dl (70-99)
[2024-06-16] MEDS: LOVENOX 40 MG SC (16:59)
--- NOTE | 2024-06-16 17:10 | CM ---
Spoke with patient and her friend Ghada [phone] in her room.
Pt is pleasant and cooperative in conversation.
Pt does not a have insurance.Contacted Emi from [facility] who saw patient.
Pt has tried to apply for insurance.
Pt is homeless. Suggested a homeless detention.
She wants to stay local and nt move back to [place]. Her dgts live in [place].
Asked if she has any one to live with . She said no.
She will need to establish a residence in [facility] to connect with recourses.
She has a car and a phone but can not call on it only use internet.
She uses [employer] and [employer].
She will need Basaglar, Synthroid,gabapentin,Wellbutrin etc.
PT OT recommended SNF but has no insurance.
Psychiatry establish to is not a harm to self.
PLAN ON going dc planning.
[2024-06-16 21:40] LABS: Glucose - Point of Care 117 mg/dl (70-99)
[2024-06-16] MEDS: LANTUS 0.15 UNITS SC (22:04)
[2024-06-17 03:00] VITALS: BP 106/64
[2024-06-17] MEDS: SYNTHROID 100 MCG PO (05:17)
[2024-06-17 07:15] VITALS: BP 102/61
[2024-06-17 07:49] LABS: Glucose - Point of Care 144 mg/dl (70-99)
--- NOTE | 2024-06-17 08:23 | PN.DE.MGMTRT ---
Insulin Management
- -
06/17/2024: Diabetes Management Follow up:
59 year old female with PMH: T2DM, BiB EMS from home unresponsive at an acquaintance's house, intubated in field, extubated 06/12.
Unable to obtain much history from patient as she is somnolent and lethargic, opens eyes to name call but falls right back to sleep.
Information obtained from chart review. Pt was managed on glycemic protocol and was transitioned off to SQ insulin. A1C 11.2%, Cr 0.8, eGFR>60
Pt awake, alert, oriented, siting up in chair able to discuss diabetes management prior to admission.
States she was taking Ozempic and Jardiance sometime back but both were d/c'd due to adverse SE, but continued taking metformin 500 mg BID. Today she states she has taken Basaglar (glargine) in the past.
06/14 was started on Regular diet by primary team. Of note, her AC NovoLog insulin has been on hold
06/15 AC NovoLog 5 units resumed, not given due to poor appetite, Metformin to 500mg BID.
06/16 Will stop AC novolog 5 units and continue Lantus 15 units and high corrective insulin with meals.
06/17 Fasting glucose this AM 144. Diet changed from 2000 to 1800, glucose range stable 76 to 123, required no corrective insulin. Will continue HS lantus 15 units with 500 mg metformin BID and high corrective insulin.
Pt states she is very comfortable with self injection of insulin using pen, good return demonstration.
Requested Pt's nurse to reinforce insulin administration. Home pen needles provided to nurse. Patient states she has a working ReliOn glucose monitor with some strips and lancets. Reinforced to test prior to meals and HS. She states she has no
money no job or insurance. Will need assistance with purchasing insulin and supplies.
Will follow
Diabetes History
- -
Type of Diabetes: 2
Pre-Admission Diabetes Regimen
Lab Results
Hemoglobin A1c 11.0 % (4.0-5.6) H 06/11/24 00:59
Insulin Pump Settings
IP Diabetes Regimen
06/16/24 06/16/24 06/16/24
11:59 16:13 21:39
POC Glucose 76 123 H 117 H
06/17/24
07:49
POC Glucose 144 H
Patient Education
[2024-06-17] MEDS: NOVOLOG FLEXPEN-HIGH RESISTANCE SC ×3 (09:00→17:57)
[2024-06-17] MEDS: WELLBUTRIN XL (24 hour extended release) 150 MG PO (09:22)
[2024-06-17] MEDS: PROTONIX 40 MG PO (09:23)
[2024-06-17] MEDS: LOPRESSOR 25 MG PO ×2 (09:23→19:41)
[2024-06-17] MEDS: GLUCOPHAGE 500 MG PO ×2 (09:23→17:57)
[2024-06-17] MEDS: TYLENOL 650 MG PO ×2 (10:09→19:41)
[2024-06-17 11:06] VITALS: BP 100/58
[2024-06-17 11:41] LABS: Glucose - Point of Care 113 mg/dl (70-99)
[2024-06-17 13:42] VITALS: BP 101/59; PULSE 91; O2SAT 98
[2024-06-17 15:10] VITALS: BP 102/65
--- NOTE | 2024-06-17 15:29 | W.PN.HOSP.TC ---
Today's Communication/Plan
-
Medically optimized.
Ongoing placement
Assessment / Plan
Assessment / Plan
Impression:
58-year-old female with unknown past medical history presents to ED of [facility] altered mental status, suspected toxic metabolic encephalopathy versus seizure with postictal, versus drug overdose requiring mechanical intubation. Extubated on .
Has prolonged QT, rhabdomyolysis mild, diabetes, hypothyroidism. Receives all her home meds from Neurologist. Home list reconciled and patient restarted on meds. No prescription of benzodiazepine noted on PDMP or on home med list. Patient did
admit to nurse that she take too much gabapentin to hurt herself but she felt 'stupid' for taking it. She does not recall taking any and benzodiazepines.
Plan:
Intentional drug overdose with Neurontin
- Intubated in ED -> extubated 06/12/24 satting well on room air
- Urine drug screen positive for benzodiazepine (which does have cross reactivity with gabapentin)
- CT head with no acute abnormalities
- Advance to regular diet with aspiration precautions per speech therapy recommendations
- Neurology believes underlying action to not speak/provide full story psychiatric etiology more likely than neurologic
-Psychiatry input appreciated. According to assessment patient with no suicidal ideation currently with no indication for inpatient psychiatric treatment.
Prolonged QT.
- Negative troponin.
- Echo 06/11 with normal LVEF at 70%. Normal RV size and function.
- Continue monitoring electrolytes.
- Follow ECG with improved QTc
-Improved
Tachycardia
- Continued tachy
- D-dimer to rule out PE. No chest pain or SOB
- Tachy common with gabapentin OD and withdrawal
- Patient stated previously on Lopressor by geospatial specialist, but discontinued due to palpitations (?)
� 5 mg IV Lopressor, then start 25 mg metoprolol twice daily
Diabetes likely untreated with hemoglobin A1c 11.
- Hyperglycemic
- Elevated serum acetone
- Possibly mild DKA in combination with contraction alkalosis.
-Initiated on subcutaneous insulin Lantus with addition of metformin.
Elevated CK
� 1123 on admission -> 3083 -> 300 ->114
- d/c fluids now starting regular diet
- Monitor
Untreated hypothyroidism.
- TSH 21.5 upon admission. Repeat TSH 8.79. Free T4 0.80
- Initiated on IV levothyroxine. Transition to oral
Leukocytosis
- Afebrile, no complaints of UTI, runny nose, fever, chills, burning with urination, increased frequency, diarrhea.
-Improved
Neuropathy
� Patient states she is on gabapentin, does not remember dose
- Will try to find PCP and start home dose when possible
- Will put on hold as pt stated she intentionally tried to OD on it.
DVT enoxaparin
Full code
Anticipated Discharge: 24 - 48 hours
Subjective/Interval History
-
Date of Service: June 17, 2024
Objective Data
-
Vital Signs:
Vital Signs
Temp Pulse Resp BP Pulse Ox
98.0 F 91 17 102/65 98
06/17/24 15:10 06/17/24 15:10 06/17/24 15:10 06/17/24 15:10 06/17/24 15:10
I&O
06/16/24 06/17/24 06/18/24
06:59 06:59 06:59
Intake Total 360 / 360 720 / 720
Output Total 650 / 650
Balance -290 / -290 720 / 720
Physical Exam
-
General: No Apparent Distress
HEENT: Normocephalic
Respiratory: Clear to Auscultation
Cardiac: Regular Rhythm and S1/S2
GI: Soft, Nontender, Nondistended and Normal Bowel Sounds
Musculoskeletal: No Edema
Skin: Warm
Neuro: AO x 3
Psych: Calm
--- NOTE | 2024-06-17 16:13 | CM ---
Spoke with Emi from [facility] who saw patient.
Pt has no ID nor certificate to try to apply for insurance.She needs address to apply for [employer] insurance.
Pt said she will try to have family from [place] bring documents needed.As per Emi documents needed to precede.
Pt is homeless. Suggested a homeless mcc.
She will need to establish a residence in [facility] to connect with recourses.
She has a car and a phone but can not call on it only use internet.
PT OT recommended SNF but has no insurance.Pt will need to improve therapy to be dc.
Psychiatry established she is clear for dc.
PLAN ON going dc planning.
[2024-06-17 17:08] LABS: Glucose - Point of Care 135 mg/dl (70-99)
[2024-06-17] MEDS: LOVENOX 40 MG SC (17:57)
[2024-06-17 21:42] LABS: Glucose - Point of Care 127 mg/dl (70-99)
[2024-06-17] MEDS: LANTUS 0.15 UNITS SC (22:20)
[2024-06-17 23:00] VITALS: BP 96/49
[2024-06-18] MEDS: SYNTHROID 100 MCG PO (05:50)
--- NOTE | 2024-06-18 07:38 | PN.DE.MGMTRT ---
Insulin Management
- -
06/18/2024: Diabetes Management Follow up:
59 year old female with PMH: T2DM, BiB EMS from home unresponsive at an acquaintance's house, intubated in field, extubated 06/12.
Unable to obtain much history from patient as she is somnolent and lethargic, opens eyes to name call but falls right back to sleep.
Information obtained from chart review. Pt was managed on glycemic protocol and was transitioned off to SQ insulin. A1C 11.2%, Cr 0.8, eGFR>60
Pt awake, alert, oriented, resting in bed, able to discuss diabetes management.
States she was taking Ozempic and Jardiance sometime back but both were d/c'd due to adverse SE, but continued taking metformin 500 mg BID. Today she states she has taken Basaglar (glargine) in the past.
06/17 Fasting glucose 144. Diet changed from 1999 to 1799, glucose range stable 76 to 123, required no corrective insulin. Will continue HS lantus 15 units with 500 mg metformin BID and high corrective insulin.
06/18 Fasting glucose 148, glucose range yesterday 113 to 144, will make no change to current regimen lantus 15 units @ hs with metformin 500 mg BID and high corrective insulin.
Pt states she is very comfortable with self injection of insulin using pen, good return demonstration.
Requested Pt's nurse to reinforce insulin administration. Home pen needles provided to nurse. Patient states she has a working ReliOn glucose monitor with some strips and lancets. Reinforced to test prior to meals and HS. She states she has no
money no job or insurance. Will need assistance with purchasing insulin and supplies.
Will follow
Diabetes History
- -
Type of Diabetes: 2
Pre-Admission Diabetes Regimen
Lab Results
Hemoglobin A1c 11.0 % (4.0-5.6) H 06/11/24 00:59
Insulin Pump Settings
IP Diabetes Regimen
06/17/24 06/17/24 06/17/24
07:49 11:40 17:07
POC Glucose 144 H 113 H 135 H
06/17/24
21:41
POC Glucose 127 H
Meal type: Dinner
Meal type: Lunch
Meal type: Breakfast
Amount consumed: 100%
Amount consumed: 100%
Amount consumed: 100%
Patient Education
[2024-06-18 08:09] LABS: Glucose - Point of Care 148 mg/dl (70-99)
[2024-06-18 08:33] VITALS: BP 104/58
[2024-06-18] MEDS: NOVOLOG FLEXPEN-HIGH RESISTANCE 1 UNITS SC ×2 (09:12→15:34)
[2024-06-18] MEDS: PROTONIX 40 MG PO (09:13)
[2024-06-18] MEDS: LOPRESSOR 25 MG PO (09:13)
[2024-06-18] MEDS: GLUCOPHAGE 500 MG PO ×2 (09:13→15:37)
[2024-06-18] MEDS: WELLBUTRIN XL (24 hour extended release) 150 MG PO (09:26)
--- NOTE | 2024-06-18 11:08 | CM ---
Addendum entered by Melania Roque 06/18/24 14:46:
Patient aware of therapy recommendations for skilled rehab.
Patient declines needs, stating she will be fine.
Plan: home, patient declined home care needs.
Addendum entered by Melania Roque 06/18/24 14:40:
Per patient she spoke with her cousin Shaheen and he is coming to pick her up at 4:30 pm.
Per patient he will take her to get prescriptions at [facility].
MD and nursing updated.
Patient unsure of her cousins address. Patient told she needs to wait on the floor for her cousin to arrive.
Original Note:
Patient seen bedside.
Discussed discharge plans with patient.
Per patient her cousin in [place] is going to get back to her this afternoon to see if she can stay with him.
Per patient he also mentioned possibly sending her money via [employer] for medications.
patient stated her car is at her friends house here [place] [facility].
Asked patient if it was possible to return to [place] with her daughters and she stated they do not have the room, even on a temporary basis.
Per patient it is ok for CM to check back in ater.
Plan: d/c disposition pending.
[2024-06-18 11:25] LABS: Glucose - Point of Care 163 mg/dl (70-99)
[2024-06-18] MEDS: NOVOLOG FLEXPEN-HIGH RESISTANCE 2 UNITS SC (12:23)
--- NOTE | 2024-06-18 15:02 | W.DS.TRANS ---
DC Summary - [employer]
-
Discharge Instructions:
Discharge Diagnosis/Procedures Overdose.
DM
Neuropathy
Diet Diabetic, Carb Controlled
Instructions:
Stand-Alone Forms:
Changes to Home Medications: Yes
Discharge Medications:
DC Medications w/original date entered in [facility]
blood-glucose meter (ReliOn All-In-One Meter kit) #1 ea 06/18/24
bupropion HCl 150 mg 24 hr tablet, extended release 150 mg PO DAILY #30 tabs 06/18/24
insulin glargine 100 unit/mL (3 mL) subcutaneous pen (Basaglar KwikPen U-100 Insulin) 15 unit (0.15 mL) SC HS #5 ea 06/18/24
levothyroxine 100 mcg tablet 100 mcg PO DAILY @ 0600 #30 tabs 06/18/24
metformin 500 mg tablet 500 mg PO BID@0800,1700 #60 tabs 06/18/24
metoprolol tartrate 25 mg tablet 25 mg PO BID #60 tabs 06/18/24
pen needle, diabetic 32 gauge x ' (BD Ultra-Fine Neeta Pen Needle) #200 ea 06/18/24
Home Medication Changes
All of above
Pending Results: No
[2024-06-18 15:34] LABS: Glucose - Point of Care 109 mg/dl (70-99)
[2024-06-18 15:57] VITALS: BP 117/77
== END 2024-06-18 16:12 | disposition home or self-care (01) | DRG 917 ==
LOC: 3 WEST ACU 23:58
PROVIDERS: Internal Medicine; Nurse Practitioner Family; Nurse Practitioner Primary Care; ADMITTING PHYSICIAN Internal Medicine; ATTENDING PHYSICIAN Internal Medicine; CONSULT PHYSICIAN Internal Medicine Cardiovascular Disease; CONSULT PHYSICIAN Internal Medicine Critical Care Medicine; CONSULT PHYSICIAN Psychiatry & Neurology Neurology; EMERGENCY PHYSICIAN Emergency Medicine
PROC: 5A1945Z Respiratory Ventilation, 24-96 Consecutive Hours (ICD-10-PCS; 2024-06-10)
PROC: 0BH18EZ Insertion of Endotracheal Airway into Trachea, Via Natural or Artificial Opening Endoscopic (ICD-10-PCS; 2024-06-10)
PROC: 0DH67UZ Insertion of Feeding Device into Stomach, Via Natural or Artificial Opening (ICD-10-PCS; 2024-06-11)
DX: T42.6X2A Poisoning by other antiepileptic and sedative-hypnotic drugs, intentional self-harm, initial encounter (principal); E11.10 Type 2 diabetes mellitus with ketoacidosis without coma; G92.8 Other toxic encephalopathy; J96.02 Acute respiratory failure with hypercapnia; E87.4 Mixed disorder of acid-base balance; M62.82 Rhabdomyolysis; Z99.11 Dependence on respirator [ventilator] status; T14.91XA Suicide attempt, initial encounter; I10 Essential (primary) hypertension; F32.A Depression, unspecified; E03.8 Other specified hypothyroidism; E11.40 Type 2 diabetes mellitus with diabetic neuropathy, unspecified; D72.829 Elevated white blood cell count, unspecified; R94.31 Abnormal electrocardiogram [ECG] [EKG]; R00.0 Tachycardia, unspecified; Z79.899 Other long term (current) drug therapy; Z91.199 Patient's noncompliance with other medical treatment and regimen due to unspecified reason; Y92.008 Other place in unspecified non-institutional (private) residence as the place of occurrence of the external cause; Z81.8 Family history of other mental and behavioral disorders
CPT/HCPCS: 31500; 36600; 70450; 71045; 80048; 80053; 80076; 80143; 80179; 80306; 80307; 81003; 81015; 82010; 82077; 82550; 82607; 82746; 82805; 82962; 83036; 83735; 84100; 84439; 84443; 84484; 85025; 85027; 85379; 85610; 85652; 85730; 87070; 92526; 92610; 93005; 93306; 94002; 94003; 96361; 96374; 96375; 97163; 97167; 97530; 97535; 99291; J3480